=== PATIENT | female | born 1990 | race Caucasian/White ===

== ENCOUNTER 2017-05-09 16:41 | Inpatient (IN) | payer OTHER ==
[~2017-05-09] VITALS: Ht 121.9 cm; Wt 33.5 kg
[~2017-05-09 16:41] MED LIST: DIAZ2 PO; TIZA4CAP PO
[2017-05-09 16:47] VITALS: BP 176/108; PULSE 145; RESP 28; TEMP 99.2; O2SAT 99
[2017-05-09 17:15] VITALS: BP 121/91; PULSE 124; RESP 20; TEMP 102.1; O2SAT 99
[2017-05-09] MEDS ORDERED: LORazepam 2 MG/ML VIAL IV PUSH ONE (17:30)
[2017-05-09] MEDS ORDERED: ACETAMINOPHEN 650 MG SUPP RECTAL ONE (17:30)
[2017-05-09] MEDS ORDERED: SODIUM CHLOR 0.9% 1000 ML INJ 1,000 ML IV ONE (17:30)
[2017-05-09] MEDS ORDERED: DIAZ1SOL PEG (18:02)
[2017-05-09] MEDS ORDERED: TIZA4TAB PO (18:02)
[2017-05-09 18:07] LABS: AUTOMATED NEUTROPHIL # 27.7 TH/MM3 (1.8-7.7); BASOPHIL # 0.2 TH/MM3 (0-0.2); BASOPHIL % 0.5 % (0.0-2.0); EOSINOPHIL % 0.1 % (0.0-4.0); HEMATOCRIT 42.4 % (35.0-46.0); HEMO FLAGS AUTO DIFF; LYMPH % 2.5 % (9.0-44.0); LYMPHOCYTE # 0.7 TH/MM3 (1.0-4.8); MEAN CELL VOLUME 87.7 FL (80.0-100.0); MEAN CORPUSCULAR HEMOGLOBIN 29.9 PG (27.0-34.0); MEAN CORPUSCULAR HGB CONC 34.1 % (32.0-36.0); MONO % 3.7 % (0.0-8.0); NEUT % 93.2 % (16.0-70.0); PLATELET COUNT 409 TH/MM3 (150-450); RED BLOOD COUNT 4.83 MIL/MM3 (4.00-5.30); RED CELL DISTRIBUTION WIDTH 13.4 % (11.6-17.2); WHITE BLOOD COUNT 29.7 TH/MM3 (4.0-11.0)
[2017-05-09 18:15] LABS: ALT (GPT) 40 U/L (10-53); ANION GAP 14 MEQ/L (5-15); AST (GOT) 55 U/L (15-37); BICARBONATE 19.9 MEQ/L (21.0-32.0); BLOOD UREA NITROGEN 21 MG/DL (7-18); CHLORIDE 109 MEQ/L (98-107); GLOMERULAR FILTRATION RATE 110 ML/MIN (>89); POTASSIUM 4.9 MEQ/L (3.5-5.1); SODIUM (NA) 143 MEQ/L (136-145)
[2017-05-09 18:17] LABS: ALKALINE PHOSPHATASE 75 U/L (45-117); TOTAL BILIRUBIN ADULT 0.6 MG/DL (0.2-1.0)
--- NOTE | 2017-05-09 18:22 | PD ---
HPI Chief Complaint: Medical Clearance Time Seen by Provider: 17:25 Travel History International Travel<30 days: No Contact w/Intl Traveler<30days: No Traveled to known affect area: No History of Present Illness HPI So 27-year-old woman who presents to the emergency department brought in by her parents. She is a history of severe spastic CP. Patient's over the past couple weeks she's gotten progressively worse with marked increase in her spasticity. They seem multiple different specialists including her urologist, and her neurologist. They were unable to find a cause for the increase in her spasticity. She's had some low-grade fever. A little bit of congestion. Patient is a history of severe spastic several palsy, she has a G-tube, she also trouble with intermittent urinary retention in the past and she does get intermittently catheterized at home. History Past Medical History Narrative Medical Spastic cerebral palsy, multiple contractures Social History Alcohol Use: No Tobacco Use: No Allergies-Medications (Allergen,Severity, Reaction): Coded Allergies: lactose (Unverified Allergy, Severe, 05/09/17) Uncoded Allergies: TAPE (Allergy, Severe, SKIN REACTION, 04/11/08) Reported Meds & Prescriptions Reported Meds & Active Scripts Active Reported Tizanidine (Tizanidine HCl) 4 Mg Tab 4 Mg PEG HS Diazepam Liq (Diazepam) 1 Mg/Ml Liq 4 Ml PEG HS Review of Systems ROS Limitations: Clinical Condition Physical Exam Narrative GENERAL: 27-year-old woman, appears younger than stated age, marked contractures throughout the upper or lower extremities and back, with writhing contractures bed. SKIN: Skins hot and flushed. I don't see any obvious areas of breakdown. HEAD: Atraumatic. Normocephalic. EYES: Pupils equal and round. No scleral icterus. No injection or drainage. ENT: No nasal bleeding or discharge. Mucous membranes pink and moist. NECK: Trachea midline. No JVD. CARDIOVASCULAR: Regular rate and rhythm. No murmur appreciated. RESPIRATORY: No accessory muscle use. Clear to auscultation. Breath sounds equal bilaterally. GASTROINTESTINAL: Abdomen flat and firm. Contracted. G-tube present the upper abdomen. MUSCULOSKELETAL: Extensive spastic contracture deformities with decreased muscle bulk. NEUROLOGICAL: Minimal apparent purposeful response with marked contractures and writhing type contracture movement. Data Data Last Documented VS Vital Signs Date Time Temp Pulse Resp B/P (MAP) Pulse Ox O2 Delivery O2 Flow Rate FiO2 05/09/17 19:08 100.6 107 20 136/91 (106) 98 Room Air Orders Orders Complete Blood Count With Diff (05/09/17:25) Comprehensive Metabolic Panel (05/09/17:25) Lactic Acid Sepsis Protocol (05/09/17:25) Lipase (05/09/17:) Urinalysis - C+S If Indicated (05/09/17:25) Influenzae A/B Antigen (05/09/17:) Blood Culture (05/09/17:) Chest, Single Ap (05/09/17:) Blood Glucose (05/09/17:) Ecg Monitoring (05/09/17:) Iv Access Insert/Monitor (05/09/17:) Cath For Specimen (05/09/17:) Oximetry (05/09/17:) Oxygen Administration (05/09/17:25) Acetaminophen Supp (Tylenol Supp) (05/09/17 17:30) Pelvis, Ap Only (Routine) (05/09/17 ) Sodium Chlor 0.9% 1000 Ml Inj (Ns 1000 M (05/09/17 17:30) Lorazepam Inj (Ativan Inj) (05/09/17 17:30) Us Kidney/Renal/Bladder (05/09/17 ) Urine Culture (05/09/17 17:40) Admit To Inpatient (05/09/17 ) Vital Signs (Adult) Q4H (05/09/17 19:22) Activity Bed Rest (05/09/17 19:22) Machine Shop Supervisor / Telemetry .CONTINUOUS (05/09/17 19:22) Sodium Chloride 0.9% Flush (Ns Flush) (05/09/17 19:30) Sodium Chloride 0.9% Flush (Ns Flush) (05/09/17 21:00) Basic Metabolic Panel (Bmp) (05/10/17 06:00) Complete Blood Count With Diff (05/10/17 06:00) Pt Request For Service (05/09/17 19:22) Case Management Consult (05/09/17:22) Naloxone Inj (Narcan Inj) (05/09/17 19:30) Inpatient Certification (05/09/17 ) Ceftriaxone Inj (Rocephin Inj) (05/09/17 19:30) Resp Panel (Adult/Ped) (05/09/17 19:21) Labs Laboratory Tests Test 05/09/17 17:35 05/09/17 17:40 05/09/17 19:03 White Blood Count 29.7 TH/MM3 Red Blood Count 4.83 MIL/MM3 Hemoglobin 14.4 GM/DL Hematocrit 42.4 % Mean Corpuscular Volume 87.7 FL Mean Corpuscular Hemoglobin 29.9 PG Mean Corpuscular Hemoglobin Concent 34.1 % Red Cell Distribution Width 13.4 % Platelet Count 409 TH/MM3 Mean Platelet Volume 8.7 FL Neutrophils (%) (Auto) 93.2 % Lymphocytes (%) (Auto) 2.5 % Monocytes (%) (Auto) 3.7 % Eosinophils (%) (Auto) 0.1 % Basophils (%) (Auto) 0.5 % Neutrophils # (Auto) 27.7 TH/MM3 Lymphocytes # (Auto) 0.7 TH/MM3 Monocytes # (Auto) 1.1 TH/MM3 Eosinophils # (Auto) 0.0 TH/MM3 Basophils # (Auto) 0.2 TH/MM3 CBC Comment AUTO DIFF Differential Total Cells Counted 100 Neutrophils % (Manual) 89 % Band Neutrophils % 7 % Lymphocytes % 1 % Monocytes % 2 % Basophils % 1 % Neutrophils # (Manual) 28.5 TH/MM3 Differential Comment FINAL DIFF MANUAL Toxic Vacuolation PRESENT Platelet Estimate NORMAL Platelet Morphology Comment NORMAL Blood Urea Nitrogen 21 MG/DL Creatinine 0.65 MG/DL Random Glucose 89 MG/DL Total Protein 8.2 GM/DL Albumin 4.3 GM/DL Calcium Level 8.7 MG/DL Alkaline Phosphatase 75 U/L Aspartate Amino Transf (AST/SGOT) 55 U/L Alanine Aminotransferase (ALT/SGPT) 40 U/L Total Bilirubin 0.6 MG/DL Sodium Level 143 MEQ/L Potassium Level 4.9 MEQ/L Chloride Level 109 MEQ/L Carbon Dioxide Level 19.9 MEQ/L Anion Gap 14 MEQ/L Estimat Glomerular Filtration Rate 110 ML/MIN Lipase 106 U/L Urine Color YELLOW Urine Turbidity CLEAR Urine pH 5.5 Urine Specific [place] 1.026 Urine Protein TRACE mg/dL Urine Glucose (UA) NEG mg/dL Urine Ketones NEG mg/dL Urine Occult Blood TRACE Urine Nitrite NEG Urine Bilirubin NEG Urine Urobilinogen LESS THAN 2.0 MG/DL Urine Leukocyte Esterase TRACE Urine RBC 4 /hpf Urine WBC 4 /hpf Urine Squamous Epithelial Cells 3 /hpf Urine Bacteria RARE /hpf Microscopic Urinalysis Comment CATH-CULTURE IND MDM Medical Decision Making Medical Screen Exam Complete: Yes Emergency Medical Condition: Yes Interpretation(s) LABS: CBC remarkable for white count 29,000 Mildly elevated AST, BUN 21 Lipase 16 Lactate pending UA unremarkable Renal ultrasound: Unremarkable. My interpretation of chest x-ray: Lungs are clear. There is some gaseous distention in the bowels. Pelvis x-ray: Previous bony osteotomy in the left hip, I don't see any fractures or other abnormality in the right hip. Previous hardware in the right femur. Differential Diagnosis Infection, some sort of painful or noxious stimulus, hip dislocation, as a lecture light abnormality, medication reaction, other Narrative Course Medical decision making INITIAL: 27-year-old woman with marked spastic contractures worsening over the past several days. Patient appears very uncomfortable. She feels hot and flushed and I think she may have an infection as a cause for her worsening contractures. Etiology is unclear. She'll be given some benzodiazepines for sedation here as well as IV fluids. We'll check labs. We'll check a chest x- ray. She has an order for an outpatient ultrasound of her kidneys ureter and bladder which will perform. She also has had hip dislocations in the past from contractures leading to a procedure to remove the femoral head on one of her hips. We'll check a pelvis x-ray to check the other hip. FINAL:: 27 YEAR-OLD woman with SPASTIC CONTRACTURES, FEVER TACHYCARDIA AND ELEVATED WHITE COUNT SUGGESTIVE OF SEPSIS ETIOLOGY OF HER INCREASED SPASTICITY. SOURCE IS UNCLEAR. VERY DIFFICULT TO LOCALIZE. There is some gaseous distention of the bowel some x-ray, but no distention of the abdomen on exam. There is no specific grimace with palpation of the abdomen, but again difficult exam. This point recommend empiric antibiotic coverage, serial examinations, repeat labs, IV fluids. Diagnosis Primary Impression: Sepsis Additional Impressions: Fever Spasticity Admitting Information Admitting Physician Requests: Admit Vamshi Santos MD May 09, 2017 18:21
[2017-05-09 18:23] LABS: BACTERIA, URINE RARE /hpf; BLOOD, URINE TRACE (NEG); GLUCOSE,URINE NEG (NEG); KETONE, URINE NEG (NEG); NITRITE,URINE NEG (NEG); PH, URINE 5.5 (5.0-8.5); SQUAMOUS EPITHELIAL CELL URINE 3 /hpf (0-5); URINE COLOR YELLOW (YELLW/STRAW)
[2017-05-09 18:25] LABS: COMMENT (UR) CATH-CULTURE IND; CULTURE IF INDICATED CATH CULTURE IND
--- NOTE | 2017-05-09 18:37 | RADRPT ---
EXAM DATE/TIME: 05/09/2017 17:53 [facility] COMPARISON: No previous studies available for comparison. EXTERNAL COMPARISON : [facility], US KIDNEY-BILATERAL, March 29, 2013 INDICATIONS : Flank pain. MEDICAL HISTORY : Cerebral palsy. Contractures. Blood transfusions. SURGICAL HISTORY : Peg placement. Suprapubic catheter. Femur surgery. Back surgery. ENCOUNTER: Initial ACUITY: 1 day PAIN SCORE: 2/10 LOCATION: Bilateral flank MEASUREMENTS: RIGHT KIDNEY: 8.9 x 4.7 x 5.0 cm LEFT KIDNEY: 9.1 x 4.5 x 4.6 cm FINDINGS: RIGHT KIDNEY: Renal cortex is normal in thickness and echotexture. No hydronephrosis, stone, or mass. LEFT KIDNEY: Renal cortex is normal in thickness and echotexture. No hydronephrosis, stone, or mass. BLADDER: The urinary bladder is totally decompressed and not seen. CONCLUSION: 1. Normal kidneys. 2. Urinary bladder totally decompressed and not seen. Antoni Mathew Jr., MD on May 09, 2017 at 18:34 Board Certified Radiologist. This report was verified electronically.
[2017-05-09 18:52] LABS: BANDS 7 % (0-6); BASOPHILS 1 % (0-2); NEUTROPHIL # MANUAL DIFF 28.5 TH/MM3 (1.8-7.7); PLATELET ESTIMATE SMEAR NORMAL (NORMAL); PLATELET MORPHOLOGY NORMAL (NORMAL); POLYS (SEG NEUTROPHILS) 89 % (16-70); SCAN/DIFF FINAL DIFF MANUAL; TOXIC VACUOLATION PRESENT (NONE SEEN); WBC DIFF SAMPLE 100
[2017-05-09 19:08] VITALS: BP 136/91; PULSE 107; PULSE 126; RESP 20; TEMP 100.6; O2SAT 98
--- NOTE | 2017-05-09 19:14 | RADRPT ---
EXAM DATE/TIME: 05/09/2017 18:37 [facility] COMPARISON: No previous studies available for comparison. INDICATIONS : Fever. MEDICAL HISTORY : Cerebral palsy. SURGICAL HISTORY : Orif of femur. ENCOUNTER: Initial ACUITY: 1 day PAIN SCORE: Non-responsive. LOCATION: Bilateral chest FINDINGS: A single view of the chest demonstrates the lungs to be symmetrically aerated without evidence of mas s, infiltrate or effusion. There is elevation of the right hemidiaphragm. The cardiomediastinal cont ours are unremarkable. A scoliotic spine. Gastrostomy tube noted. Gas-filled loops of large bowel wit hin the upper abdomen. CONCLUSION: No acute disease. Antoni Mathew Jr., MD on May 09, 2017 at 19:11 Board Certified Radiologist. This report was verified electronically.
--- NOTE | 2017-05-09 19:19 | RADRPT ---
EXAM DATE/TIME: 05/09/2017 18:42 [facility] COMPARISON: No previous studies available for comparison. INDICATIONS : Pelvis pain. MEDICAL HISTORY : Cerebral palsy. SURGICAL HISTORY : Orif of femur. ENCOUNTER: Initial ACUITY: 1 day PAIN SCORE: Non-responsive. LOCATION: Pelvis. FINDINGS: A single frontal view of the pelvis was the best obtainable image given the patient's state of jorge ation. There is a windswept pelvis noted consistent with nonambulatory patient. Either chronic erosiv e changes or surgical absence of the left femoral head. There is superior migration of the right femo ral head without crystal dislocation. Shallow acetabula are noted. No acute fracture or dislocation. A right femoral orthopedic plate observed. Gas filled loops of large and small bowel observed. CONCLUSION: Chronic changes as detailed above. No acute abnormality. Antoni Mathew Jr., MD on May 09, 2017 at 19:16 Board Certified Radiologist. This report was verified electronically.
[2017-05-09] MEDS ORDERED: cefTRIAXone INJ 1,000 MG in SODIUM CHLORIDE 0.9% INJ 100 ML IV ONE (19:30)
[2017-05-09] MEDS ORDERED: SODIUM CHLORIDE 0.9% FLUSH 10 ML FLUSH IV FLUSH PRN (19:30)
[2017-05-09] MEDS ORDERED: NALOXONE HCL 0.4 MG/ML AMP IV PUSH PRN (19:30)
[2017-05-09 21:07] VITALS: BP 140/88; PULSE 138; RESP 20; TEMP 100; O2SAT 96
[2017-05-10] VITALS (7 sets, daily range): BP systolic 121–162; BP diastolic 71–100; PULSE 102–140; RESP 17–21; TEMP 97–99.8; O2SAT 95–97
[2017-05-10] MEDS: SODIUM CHLORIDE 0.9% FLUSH 10 ML FLUSH IV FLUSH SCH ×3 (00:05→20:17)
--- NOTE | 2017-05-10 00:45 | HHI.HP ---
HPI Service [facility] Primary Care Physician No Primary Care Physician Admission Diagnosis sepsis, fever, increased spasticity Diagnoses: Travel History International Travel<30 Days: No Contact w/Intl Traveler <30 Da: No Traveled to Known Affected Are: No History of Present Illness hx from patient's parents at the bedside, ER physician communication and review of medical records Patient's parents reported that patient was having episodes at home for the past few weeks where she would become supertight, and would have increased spasms. They also report of severe diaphoresis with these episodes. 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 However she is able to answer yes or no questions by stinks out her tongue. She reports a burning urination. She denies fevers/diarrhea/nausea/headaches/abdominal pains. Mom noticed the patient was getting more and more spastic and tighter than her normal and they would have to hold her all day long. Therefore they went to her neurologist in [place] who sent her to hospital. per mom, no nausea/ vomiting/ diarrhea/ blood in stool or urination no abdominal pain no confusion not on anitbiotics at home no daycare program no sick contact has therapist who comes in for PT, who also works at school system straight cath once or twice a month- by parents about 2.5 weeks ago, straight cath was done, was cloudy and sediments at that time went to ER then, and urine was negative - in [place] peg tube placed about 15yrs ago, changed at home by mom every 6 months had once some leakage into peritoneal area about 14yrs ago and needed to drain it- but since then nothing happened no bed sores Patient's parents are also worried about patient not having enough nutrition. Patient has been extremely thin. She does not like PEG tube feeding. She therefore usually just gets medications and water through her PEG tube but she would take her meals orally. She would have to have her meals chopped up by her mom and she would eat them. She also does not like the taste of Ensure and therefore was not getting any supplements. Parents report that the patient used to have baclofen pump previously but patient would literally get the pump out of her skin because of her movements and body being too thin. She also had infection with MSSA with baclofen pump. Review of Systems Except as stated in HPI: all other systems reviewed are Neg Past Family Social History Past Medical History cerebral palsy - caused by kernicterus never had aspiration pneumonia Past Surgical History peg tube placement right hip fx sx rizotomy left hip femur procedure for dislocation- castle procedure peg tube leakage to peritoneal- sx baclofen pump insertion- and removal - due to MSSA infection Allergies: Coded Allergies: lactose (Unverified Allergy, Severe, 05/09/17) Uncoded Allergies: TAPE (Allergy, Severe, SKIN REACTION, 04/11/08) Family History dm in mom borderline maternal grandfather - htn pt's older brother- DM type I Social History no smoking /etoh/ drugs cannot sit on chair unless with multiple straps to secure her Physical Exam Vital Signs Vital Signs Date Time Temp Pulse Resp B/P (MAP) Pulse Ox O2 Delivery O2 Flow Rate FiO2 05/09/17 21:11 05/09/17 21:07 100.0 138 20 140/88 (105) 96 05/09/17 19:08 100.6 107 20 136/91 (106) 98 Room Air 05/09/17 17:15 102.1 124 20 121/91 (101) 99 Room Air 05/09/17 17:15 99 Room Air 05/09/17 17:15 99 Room Air 05/09/17 16:47 99.2 145 28 176/108 (130) 99 Room Air Physical Exam GENERAL: This is a thin young lady, not in acute distress. Smiling. SKIN: No rashes, ecchymoses or lesions. Cool and dry. HEAD: Atraumatic. Normocephalic. No temporal or scalp tenderness. EYES: P. No scleral icterus. No injection or drainage. ENT: Nose without bleeding, purulent drainage or septal hematoma. . Airway patent. NECK: Trachea midline. No JVD CARDIOVASCULAR: Regular rate and rhythm without murmurs, gallops, or rubs. RESPIRATORY: Limited exam due to patient's body habitus. Decreased air entry. GASTROINTESTINAL: Abdomen soft, non-tender, nondistended. No guarding. MUSCULOSKELETAL: Extremities without clubbing, cyanosis, or edema. No calf tenderness. Muscle atrophic NEUROLOGICAL: Awake and alert. Bilateral upper and lower extremity contractures. Severe scoliosis. Nonverbal. However answers yes or no questions by sticking out her tongue. Laboratory Laboratory Tests Test 05/09/17 17:35 05/09/17 17:40 05/09/17 19:03 05/09/17 19:53 White Blood Count 29.7 Red Blood Count 4.83 Hemoglobin 14.4 Hematocrit 42.4 Mean Corpuscular Volume 87.7 Mean Corpuscular Hemoglobin 29.9 Mean Corpuscular Hemoglobin Concent 34.1 Red Cell Distribution Width 13.4 Platelet Count 409 Mean Platelet Volume 8.7 Neutrophils (%) (Auto) 93.2 Lymphocytes (%) (Auto) 2.5 Monocytes (%) (Auto) 3.7 Eosinophils (%) (Auto) 0.1 Basophils (%) (Auto) 0.5 Neutrophils # (Auto) 27.7 Lymphocytes # (Auto) 0.7 Monocytes # (Auto) 1.1 Eosinophils # (Auto) 0.0 Basophils # (Auto) 0.2 CBC Comment AUTO DIFF Differential Total Cells Counted 100 Neutrophils % (Manual) 89 Band Neutrophils % 7 Lymphocytes % 1 Monocytes % 2 Basophils % 1 Neutrophils # (Manual) 28.5 Differential Comment FINAL DIFF MANUAL Toxic Vacuolation PRESENT Platelet Estimate NORMAL Platelet Morphology Comment NORMAL Blood Urea Nitrogen 21 Creatinine 0.65 Random Glucose 89 Total Protein 8.2 Albumin 4.3 Calcium Level 8.7 Alkaline Phosphatase 75 Aspartate Amino Transf (AST/SGOT) 55 Alanine Aminotransferase (ALT/SGPT) 40 Total Bilirubin 0.6 Sodium Level 143 Potassium Level 4.9 Chloride Level 109 Carbon Dioxide Level 19.9 Anion Gap 14 Estimat Glomerular Filtration Rate 110 Lipase 106 Urine Color YELLOW Urine Turbidity CLEAR Urine pH 5.5 Urine Specific [place] 1.026 Urine Protein TRACE Urine Glucose (UA) NEG Urine Ketones NEG Urine Occult Blood TRACE Urine Nitrite NEG Urine Bilirubin NEG Urine Urobilinogen LESS THAN 2.0 Urine Leukocyte Esterase TRACE Urine RBC 4 Urine WBC 4 Urine Squamous Epithelial Cells 3 Urine Bacteria RARE Microscopic Urinalysis Comment CATH-CULTURE IND Lactic Acid Level 1.1 Date/Time Source Procedure Growth Status 05/09/17 17:35 Blood Peripheral Aerobic Blood Culture Pending Received 05/09/17 17:35 Blood Peripheral Anaerobic Blood Culture Pending Received 05/09/17 17:45 Nasal Washing Influenza Types A,B Antigen (VERONIKA) - Final NEGATIVE FOR FLU A AND B ANTIGEN.... Complete 05/09/17 17:40 Urine Catheterized Urine Urine Culture Pending Received Result Diagram: 05/09/17 1735 05/09/17 173 Imaging Last 48 hours Impressions Chest X-Ray 05/09/17 1725 Signed Impressions: Service Date/Time: Tuesday, May 09, 2017 18:37 - CONCLUSION: No acute disease. Antoni Mathew Jr., MD Renal Ultrasound 05/09/17 0000 Signed Impressions: Service Date/Time: Tuesday, May 09, 2017 17:53 - CONCLUSION: 1. Normal kidneys. 2. Urinary bladder totally decompressed and not seen. Antoni Mathew Jr., MD Pelvis X-Ray 05/09/17 0000 Signed Impressions: Service Date/Time: Tuesday, May 09, 2017 18:42 - CONCLUSION: Chronic changes as detailed above. No acute abnormality. MD Saritha Zheng Jr. VTE Risk Assessment Caprini VTE Risk Assessment: Mod/High Risk (score >= 2) Caprini Risk Assessment Model Point Value = 1 Point Value = 2 Point Value = 3 Point Value = 5 Age 41-60 Minor surgery BMI > 25 kg/m2 Swollen legs Varicose veins or History of unexplained or recurrent spontaneous Oral contraceptives or hormone replacement Sepsis (< 1 month) Serious lung disease, including pneumonia (< 1 month) Abnormal pulmonary function Acute myocardial infarction Congestive heart failure (< 1 month) History of inflammatory bowel disease Medical patient at bed rest Age 61-74 Arthroscopic surgery Major open surgery (> 45 min) Laparoscopic surgery (> 45 min) Malignancy Confined to bed (> 72 hours) Immobilizing plaster cast Central venous access Age >= 75 History of VTE Family history of VTE Factor V Leiden Prothrombin [id number] Lupus anticoagulant Anticardiolipin antibodies Elevated serum homocysteine Heparin-induced thrombocytopenia Other congenital or acquired thrombophilia Stroke (< 1 month) Elective arthroplasty Hip, pelvis, or leg fracture Acute spinal cord injury (< 1 month) Prophylaxis Regimen Total Risk Factor Score Risk Level Prophylaxis Regimen 0-1 Low Early ambulation 2 Moderate Order ONE of the following: *Sequential Compression Device (SCD) *Heparin 5000 units SQ BID 3-4 Higher Order ONE of the following medications: *Heparin 5000 units SQ TID *Enoxaparin/Lovenox 40 mg SQ daily (WT < 150 kg, CrCl > 30 mL/min) *Enoxaparin/Lovenox 30 mg SQ daily (WT < 150 kg, CrCl > 10-29 mL/min) *Enoxaparin/Lovenox 30 mg SQ BID (WT < 150 kg, CrCl > 30 mL/min) AND/OR *Sequential Compression Device (SCD) 5 or more Highest Order ONE of the following medications: *Heparin 5000 units SQ TID (Preferred with Epidurals) *Enoxaparin/Lovenox 40 mg SQ daily (WT < 150 kg, CrCl > 30 mL/min) *Enoxaparin/Lovenox 30 mg SQ daily (WT < 150 kg, CrCl > 10-29 mL/min) *Enoxaparin/Lovenox 30 mg SQ BID (WT < 150 kg, CrCl > 30 mL/min) AND *Sequential Compression Device (SCD) Assessment and Plan Assessment and Plan Impression: uti febrile illness sirs worsening spasticity cerebral palsy - caused by kernicterus as never had aspiration pneumonia Plan: received rocephin and azithromax in er start on levofloxacin in am monitor for fevers turn pt q2hrs softcare mattress no evidence of diarrhea to follow up with viral panel. Would consult rehabilitation medicine/physiatry in regards to recommendations regarding spasticity management. Resume home Zanaflex and Valium. May need adjustment of meds versus baclofen pump to control spasticity. DVT prophylaxis with Lovenox. Discussed Condition With Patient, her mother and father at the bedside. Physician Certification 2 Midnight Certification Type: Admission for Inpatient Services Order for Inpatient Services The services are ordered in accordance with Medicare regulations or non- Medicare payer requirements, as applicable. In the case of services not specified as inpatient-only, they are appropriately provided as inpatient services in accordance with the 2-midnight benchmark. Estimated LOS (days): 4 days is the estimated time the patient will need to remain in the hospital, assuming treatment plan goals are met and no additional complications. Post-Hospital Plan: Home Bandar Maya MD May 10, 2017 00:45
[2017-05-10] MEDS ORDERED: ACETAMINOPHEN 650 MG SUPP RECTAL PRN (01:00)
[2017-05-10] MEDS ORDERED: MINERAL OIL ENEMA 118 ML BTL RECTAL PRN (01:45)
[2017-05-10 07:45] LABS: AUTOMATED NEUTROPHIL # 11.6 TH/MM3 (1.8-7.7); BASOPHIL # 0.1 TH/MM3 (0-0.2); BASOPHIL % 0.5 % (0.0-2.0); EOSINOPHIL % 0.1 % (0.0-4.0); HEMATOCRIT 38.5 % (35.0-46.0); HEMO FLAGS DIFF FINAL; LYMPH % 8.8 % (9.0-44.0); LYMPHOCYTE # 1.2 TH/MM3 (1.0-4.8); MEAN CELL VOLUME 86.8 FL (80.0-100.0); MEAN CORPUSCULAR HEMOGLOBIN 29.7 PG (27.0-34.0); MEAN CORPUSCULAR HGB CONC 34.2 % (32.0-36.0); NEUT % 83.6 % (16.0-70.0); PLATELET COUNT 264 TH/MM3 (150-450); RED BLOOD COUNT 4.44 MIL/MM3 (4.00-5.30); RED CELL DISTRIBUTION WIDTH 13.4 % (11.6-17.2); WHITE BLOOD COUNT 13.8 TH/MM3 (4.0-11.0)
[2017-05-10 08:10] LABS: BICARBONATE 23.6 MEQ/L (21.0-32.0); POTASSIUM 4.2 MEQ/L (3.5-5.1)
[2017-05-10] MEDS: LEVOFLOXACIN 750 MG PREMIX INJ 150 ML IV SCH (09:26)
[2017-05-10] MEDS: ENOXAPARIN SODIUM 40 MG/0.4 ML SYRINGE SQ SCH (09:27)
[2017-05-10 12:13] LABS: BOR. HOLMESII NOT DETECTED (NOT DETECT); BOR. PARA/BRONCH NOT DETECTED (NOT DETECT); BOR. PERTUSSIS NOT DETECTED (NOT DETECT); INFLUENZA B NOT DETECTED (NOT DETECT); RESP SYNCYTIAL VIRUS A NOT DETECTED (NOT DETECT); RESP SYNCYTIAL VIRUS B NOT DETECTED (NOT DETECT)
--- NOTE | 2017-05-10 17:10 | HHI.PR ---
Subjective Remarks supertight, burnign urinatinon, pt denies fever/ diarrhea/ nausea/ headaches denies abodminal pain monday, started- mom noticed pt was tighter than normal, family would hold her a lot went to neurologist today- Dr Hairston in [place] hx of Cerebral palsy pt would cry with tightness per mom, no nausea/ vomiting/ diarrhea/ blood in stool or urination no abdominal pain no confusion not on anitbiotics at home no daycare program no sick contact has therapist who comes in for PT, who also works at school system straight cath once or twice a month- by parents about 2.5 weeks ago, straight cath was done, was cloudy and sediments at that time went to ER then, and urine was negative - in [place] peg tube placed about 15yrs ago, changed at home by mom every 6 months had once some leakage into peritoneal area about 14yrs ago and needed to drain it- but since then nothing happened no bed sores 11-8 LONG DISCUSSION WITH FAMILY HAS HAD INCREASED SPASTICITY FOR AT LEAST THE PAST FEW MONTHS WILL ASK DR RUCKER TO SEE REGARDING THE SPASTICITY DW RN AND FAMILY FLUIDS ADJUST MEDS PAIN CONTROL Objective Vitals Vital Signs Date Time Temp Pulse Resp B/P (MAP) Pulse Ox O2 Delivery O2 Flow Rate FiO2 05/10/17 12:13 103 05/10/17 12:00 97.9 140 21 121/71 (88) 97 05/10/17 08:00 98.2 102 20 136/100 (112) 97 05/10/17 04:00 99.8 115 20 124/80 (95) 95 05/10/17 00:00 97.6 114 20 131/72 (91) 95 05/09/17 21:11 05/09/17 21:07 100.0 138 20 140/88 (105) 96 05/09/17 19:08 100.6 107 20 136/91 (106) 98 Room Air 05/09/17 17:15 102.1 124 20 121/91 (101) 99 Room Air 05/09/17 17:15 99 Room Air 05/09/17 17:15 99 Room Air I/O 05/09/17 05/09/17 05/09/17 05/10/17 05/10/17 05/10/17 07:00 15:00 23:00 07:00 15:00 23:00 Intake Total 1100 ml 450 ml Balance 1100 ml 450 ml Intake IV Total 1100 ml 150 ml Tube Irrigant 180 ml Other 120 ml # Voids 6 2 Result Diagram: 05/10/17 0643 05/10/17642 Other Results Laboratory Tests Test 05/09/17 17:35 05/09/17 17:40 05/09/17 19:03 05/09/17 19:53 White Blood Count 29.7 TH/MM3 Red Blood Count 4.83 MIL/MM3 Hemoglobin 14.4 GM/DL Hematocrit 42.4 % Mean Corpuscular Volume 87.7 FL Mean Corpuscular Hemoglobin 29.9 PG Mean Corpuscular Hemoglobin Concent 34.1 % Red Cell Distribution Width 13.4 % Platelet Count 409 TH/MM3 Mean Platelet Volume 8.7 FL Neutrophils (%) (Auto) 93.2 % Lymphocytes (%) (Auto) 2.5 % Monocytes (%) (Auto) 3.7 % Eosinophils (%) (Auto) 0.1 % Basophils (%) (Auto) 0.5 % Neutrophils # (Auto) 27.7 TH/MM3 Lymphocytes # (Auto) 0.7 TH/MM3 Monocytes # (Auto) 1.1 TH/MM3 Eosinophils # (Auto) 0.0 TH/MM3 Basophils # (Auto) 0.2 TH/MM3 CBC Comment AUTO DIFF Differential Total Cells Counted 100 Neutrophils % (Manual) 89 % Band Neutrophils % 7 % Lymphocytes % 1 % Monocytes % 2 % Basophils % 1 % Neutrophils # (Manual) 28.5 TH/MM3 Differential Comment FINAL DIFF MANUAL Toxic Vacuolation PRESENT Platelet Estimate NORMAL Platelet Morphology Comment NORMAL Blood Urea Nitrogen 21 MG/DL Creatinine 0.65 MG/DL Random Glucose 89 MG/DL Total Protein 8.2 GM/DL Albumin 4.3 GM/DL Calcium Level 8.7 MG/DL Alkaline Phosphatase 75 U/L Aspartate Amino Transf (AST/SGOT) 55 U/L Alanine Aminotransferase (ALT/SGPT) 40 U/L Total Bilirubin 0.6 MG/DL Sodium Level 143 MEQ/L Potassium Level 4.9 MEQ/L Chloride Level 109 MEQ/L Carbon Dioxide Level 19.9 MEQ/L Anion Gap 14 MEQ/L Estimat Glomerular Filtration Rate 110 ML/MIN Lipase 106 U/L Urine Color YELLOW Urine Turbidity CLEAR Urine pH 5.5 Urine Specific [place] 1.026 Urine Protein TRACE mg/dL Urine Glucose (UA) NEG mg/dL Urine Ketones NEG mg/dL Urine Occult Blood TRACE Urine Nitrite NEG Urine Bilirubin NEG Urine Urobilinogen LESS THAN 2.0 MG/DL Urine Leukocyte Esterase TRACE Urine RBC 4 /hpf Urine WBC 4 /hpf Urine Squamous Epithelial Cells 3 /hpf Urine Bacteria RARE /hpf Microscopic Urinalysis Comment CATH-CULTURE IND Lactic Acid Level 1.1 mmol/L Adenovirus (PCR) NOT DETECTED Bordetella holmesii (PCR) NOT DETECTED Bordetella pertussis DNA (PCR) NOT DETECTED B. parapertussis/bronchi (PCR) NOT DETECTED Human Metapneumovirus (PCR) NOT DETECTED Influenza Type A (RT-PCR) NOT DETECTED Influenza Type A (H1) (PCR) NOT DETECTED Influenza Type A (H3) (PCR) NOT DETECTED Influenza Type B (RT-PCR) NOT DETECTED Parainfluenza Type 1 (PCR) NOT DETECTED Parainfluenza Type 2 (PCR) NOT DETECTED Parainfluenza Type 3 (PCR) NOT DETECTED Parainfluenza Type 4 (PCR) NOT DETECTED Resp Syncytial Virus Type A (PCR) NOT DETECTED Resp Syncytial Virus Type B (PCR) NOT DETECTED Rhinovirus (PCR) NOT DETECTED Test 05/10/17 06:43 White Blood Count 13.8 TH/MM3 Red Blood Count 4.44 MIL/MM3 Hemoglobin 13.2 GM/DL Hematocrit 38.5 % Mean Corpuscular Volume 86.8 FL Mean Corpuscular Hemoglobin 29.7 PG Mean Corpuscular Hemoglobin Concent 34.2 % Red Cell Distribution Width 13.4 % Platelet Count 264 TH/MM3 Mean Platelet Volume 8.8 FL Neutrophils (%) (Auto) 83.6 % Lymphocytes (%) (Auto) 8.8 % Monocytes (%) (Auto) 7.0 % Eosinophils (%) (Auto) 0.1 % Basophils (%) (Auto) 0.5 % Neutrophils # (Auto) 11.6 TH/MM3 Lymphocytes # (Auto) 1.2 TH/MM3 Monocytes # (Auto) 1.0 TH/MM3 Eosinophils # (Auto) 0.0 TH/MM3 Basophils # (Auto) 0.1 TH/MM3 CBC Comment DIFF FINAL Differential Comment Blood Urea Nitrogen 14 MG/DL Creatinine 0.39 MG/DL Random Glucose 69 MG/DL Calcium Level 8.8 MG/DL Sodium Level 142 MEQ/L Potassium Level 4.2 MEQ/L Chloride Level 107 MEQ/L Carbon Dioxide Level 23.6 MEQ/L Anion Gap 11 MEQ/L Estimat Glomerular Filtration Rate 199 ML/MIN Imaging Last Impressions Chest X-Ray 05/09/17 1725 Signed Impressions: Service Date/Time: Tuesday, May 09, 2017 18:37 - CONCLUSION: No acute disease. Antoni Mathew Jr., MD Renal Ultrasound 05/09/17 0000 Signed Impressions: Service Date/Time: Tuesday, May 09, 2017 17:53 - CONCLUSION: 1. Normal kidneys. 2. Urinary bladder totally decompressed and not seen. Antoni Mathew Jr., MD Pelvis X-Ray 05/09/17 0000 Signed Impressions: Service Date/Time: Tuesday, May 09, 2017 18:42 - CONCLUSION: Chronic changes as detailed above. No acute abnormality. Antoni Mathew Jr., MD Objective Remarks GENERAL: Flailing all extremities around in no fashion-nonverbal at this time SKIN: Warm and dry. HEAD: Atraumatic. Normocephalic. EYES: Pupils equal and round. No scleral icterus. No injection or drainage. ENT: No nasal bleeding or discharge. Mucous membranes pink and moist. NECK: Trachea midline. No JVD. Neck appears supple CARDIOVASCULAR: Regular rate and rhythm. S1 and S2 no S3 or S4 RESPIRATORY: No accessory muscle use. Clear to auscultation. Breath sounds equal bilaterally. GASTROINTESTINAL: Abdomen soft, non-tender, nondistended. Hepatic and splenic margins not palpable. PEG tube MUSCULOSKELETAL: Extremities without clubbing, cyanosis, or edema. No obvious deformities. Spasticity in upper extremity and lower extremities bilaterally NEUROLOGICAL: Awake and alert. No obvious cranial nerve deficits. Motor grossly within normal limits. 4 out of 5 muscle strength in the arms and legs. ABNormal speech./ ( PSYCHIATRIC: INAppropriate mood and affect; insight and judgment ABnormal. Very spastic in upper extremity and lower extremity Medications and IVs Current Medications Acetaminophen (Tylenol Supp) 650 mg ONCE ONCE RECTAL Last administered on 05/09 17:56; Start 05/09/17 at 17:30; Stop 05/09/17 at 17:31; Status DC Sodium Chloride 1,000 ml @ 2,000 mls/hr Q30M ONCE IV Last administered on 05/09 17:56; Start 05/09/17 at 17:30; Stop 05/09/17 at 17:59; Status DC Lorazepam (Ativan Inj) 1 mg ONCE ONCE IV PUSH Last administered on 05/09/17 17:56; Start 05/09/17 at 17:30; Stop 05/09/17 at 17:31; Status DC Sodium Chloride (NS Flush) 2 ml UNSCH PRN IV FLUSH FLUSH AFTER USING IV ACCESS ; Start 05/09/17 at 19:30 Sodium Chloride (NS Flush) 2 ml BID IV FLUSH Last administered on 05/10/17 09: 27; Start 05/09/17 at 21:00 Naloxone HCl (Narcan Inj) 0.4 mg UNSCH PRN IV PUSH SEE LABEL COMMENTS; Start 05/09/17 at 19:30 Ceftriaxone Sodium 1000 mg/ Sodium Chloride 100 ml @ 200 mls/hr ONCE ONCE IV Last administered on 05/09/17 20:05; Start 05/09/17 at 19:30; Stop 05/09/17 at 19:59; Status DC Acetaminophen (Tylenol Supp) 650 mg Q6H PRN RECTAL fever >101; Start 05/10/17 at 01:00 Tizanidine HCl (Zanaflex) 4 mg QID PO Last administered on 05/10/17 12:30; Start 05/10/17 at 09:00 Diazepam (Valium) 4 mg HS PEG ; Start 05/10/17 at 21:00 Levofloxacin/ Dextrose 150 ml @ 100 mls/hr Q24H IV Last administered on 09:26; Start 05/10/17 at 09:00 Enoxaparin Sodium (Lovenox Inj) 40 mg Q24H SQ Last administered on 05/10/17 09 :27; Start 05/10/17 at 09:00 Mineral Oil (Fleet Mineral Oil Enema) 118 ml DAILY PRN RECTAL constipation; Start 05/10/17 at 01:45 A/P Assessment and Plan Assessment and Plan uti febrile illness sirs worsening spasticity received rocephin and azithromax in er start on levofloxacin in am monitor for fevers turn pt q2hrs softcare mattress no evidence of diarrhea to follow up with viral panel. Would consult rehabilitation medicine/physiatry in regards to recommendations regarding spasticity management. Resume home Zanaflex and Valium. PAIN CONTROL FLUIDS ANTIBIOTICS MEEK RN AND FAMILY ANTISPASM MEDS FOR HER SPASTICITY May need a larger specialized Hospital Discharge Planning MAY NEED A LARGER HOSPITAL WITH SPECIALISTS IN [place] [facility] Rod Trammell DO May 10, 2017 17:10
[2017-05-10] MEDS: LORazepam 0.5 MG TAB PEG PRN (17:36)
[2017-05-10] MEDS: POTASSIUM CHLORIDE INJ 20 MEQ, SODIUM BICARBONATE 8.4% INJ 50 MEQ in DEXT 5%-NACL 0.45%... IV SCH (17:49)
[2017-05-10] MEDS: DIAZEPAM 2 MG TAB PEG SCH (20:26)
[2017-05-10] MEDS ORDERED: MAGNESIUM HYDROXIDE SUSP 30 ML CUP PEG ONE (23:30)
[2017-05-11] VITALS (8 sets, daily range): BP systolic 106–174; BP diastolic 62–111; PULSE 88–138; RESP 17–20; TEMP 94.2–98.7; O2SAT 95–99
[2017-05-11] MEDS ORDERED: DIATRIZOATE MEGLUM/DIATRIZOATE SOD 9 ML CUP PO SCH (00:30)
[2017-05-11] MEDS ORDERED: LORazepam 2 MG/ML VIAL IV PUSH ONE (00:30)
--- NOTE | 2017-05-11 00:54 | RADRPT ---
EXAM DATE/TIME: 05/11/2017 00:27 [facility] COMPARISON: No previous studies available for comparison. INDICATIONS : Constipation. MEDICAL HISTORY : Cerebral palsy. SURGICAL HISTORY : Orif of femur. ENCOUNTER: Initial ACUITY: 1 day PAIN SCORE: Non-responsive. LOCATION: Bilateral abdomen. FINDINGS: Supine view of the abdomen was performed. The abdominal bowel gas pattern is normal. No abnormal ma sses, calcifications, or organomegaly is seen. Severe dextroscoliosis is present. There is resorption of the left femoral head with coxa valga on the right CONCLUSION: 1. No evidence of obstruction. Iban Begum MD on May 11, 2017 at 0:52 Board Certified Radiologist. This report was verified electronically.
[2017-05-11] MEDS ORDERED: IOHEXOL 350 MG/ML 10 ML VIAL (for RAD DIAG) IVCONTRAST ONE (05:20)
--- NOTE | 2017-05-11 05:49 | RADRPT ---
EXAM DATE/TIME: 05/11/2017 05:09 [facility] COMPARISON: No previous studies available for comparison. INDICATIONS : Sepsis, fever. Rule out obstruction, appendicitis and/or cholecystitis. IV CONTRAST: 40 cc Omnipaque 350 (iohexol) IV ORAL CONTRAST: Prescribed oral contrast ingested. RADIATION DOSE: 4.49 CTDIvol (mGy) MEDICAL HISTORY : Cerebral palsy. SURGICAL HISTORY : Right hip surgery. Peg tube. ENCOUNTER: Initial ACUITY: 1 day PAIN SCALE: Non-responsive LOCATION: Bilateral abdomen TECHNIQUE: Volumetric scanning of the abdomen and pelvis was performed. Using automated exposure control and ad justment of the mA and/or kV according to patient size, radiation dose was kept as low as reasonably achievable to obtain optimal diagnostic quality images. DICOM format image data is available electro nically for review and comparison. FINDINGS: Examination of the lung bases demonstrates no abnormality. No pleural fluid is identified. No pulmona ry nodules are present. The liver and spleen are free of focal defects. The gallbladder and pancreas demonstrate no abnormality. The adrenal glands are normal. The kidneys demonstrate no evidence of syl id renal mass or hydronephrosis. No free fluid or abdominal masses are identified. No para-aortic judy nopathy is seen. Gastrostomy tube is present. Examination of the pelvis demonstrates no evidence of free fluid or pelvic mass. No abnormally enlarg ed inguinal or retroperitoneal lymph nodes are present. The bladder is unremarkable. There is a large amount of fecal material throughout the colon consistent with constipation. Severe scoliosis is pres ent CONCLUSION: 1. No evidence of acute abdominal or pelvic process. No masses are identified. 2. Constipation Iban Begum MD on May 11, 2017 at 5:43 Board Certified Radiologist. This report was verified electronically.
--- NOTE | 2017-05-11 05:54 | RADRPT ---
EXAM DATE/TIME: 05/11/2017 05:09 [facility] COMPARISON: No previous studies available for comparison. INDICATIONS : Sepsis, fever. Rule out infection, dislocation and fracture. RADIATION DOSE: ; Reconstructed from previous dataset, no dose MEDICAL HISTORY : Cerebral palsy. SURGICAL HISTORY : Right hip surgery. Peg tube. ENCOUNTER: Initial ACUITY: 1 day PAIN SCALE: Non-responsive LOCATION: Bilateral lumbar TECHNIQUE: Volumetric scanning of the lumbar spine was performed. Multiplanar reconstructions in the sagittal, coronal and oblique axial planes were performed. Using automated exposure control and adjustment of the mA and/or kV according to patient size, radiation dose was kept as low as reasonably achievable t o obtain optimal diagnostic quality images. DICOM format image data is available electronically for review and comparison. FINDINGS: Sagittal images demostrate normal vertebral body alignment and curvature on lateral view. There is se hunter dextroscoliosis. No fractures are identified. Axial images performed from T12-L1 through L5-S1. T12-L1: No significant abnormalities identified. L1-L2: No significant abnormalities identified. L2-L3: No significant abnormalities identified. L3-L4: There is no evidence of disc protrusion or spinal canal stenosis. There is mild facet arthritis bilat erally. L4-L5: There is mild diffuse annular bulge of the disc. The neural foramina are clear bilaterally. There is no significant spinal canal stenosis. L5-S1: No significant abnormalities identified. CONCLUSION: 1. Severe scoliosis. No evidence of disc protrusion or spinal canal stenosis. Iban Begum MD on May 11, 2017 at 5:47 Board Certified Radiologist. This report was verified electronically.
--- NOTE | 2017-05-11 05:56 | RADRPT ---
EXAM DATE/TIME: 05/11/2017 05:14 [facility] COMPARISON: No previous studies available for comparison. INDICATIONS : Sepsis, fever. Rule out infection, dislocation and fracture. RADIATION DOSE: 27.74 CTDIvol (mGy) ; Combined studies MEDICAL HISTORY : Cerebral palsy. SURGICAL HISTORY : Right hip surgery. ENCOUNTER: Initial ACUITY: 1 day PAIN SCALE: Non-responsive LOCATION: Bilateral neck TECHNIQUE: Volumetric scanning of the cervical spine was performed. Multiplanar reconstructions in the sagittal, coronal and oblique axial planes were performed. Using automated exposure control and adjustment o f the mA and/or kV according to patient size, radiation dose was kept as low as reasonably achievable to obtain optimal diagnostic quality images. DICOM format image data is available electronically f or review and comparison. FINDINGS: VERTEBRAE: Normal vertebral body height. ALIGNMENT: No evidence of subluxation. C2-C3: The bony spinal canal is normal in size. No evidence of disc bulge or herniation. The neural forami na are bilaterally patent. C3-C4: The bony spinal canal is normal in size. No evidence of disc bulge or herniation. The neural forami na are bilaterally patent. C4-C5: The bony spinal canal is normal in size. No evidence of disc bulge or herniation. The neural forami na are bilaterally patent. C5-C6: The bony spinal canal is normal in size. No evidence of disc bulge or herniation. The neural forami na are bilaterally patent. C6-C7: The bony spinal canal is normal in size. No evidence of disc bulge or herniation. The neural forami na are bilaterally patent. C7-T1: The bony spinal canal is normal in size. No evidence of disc bulge or herniation. The neural forami na are bilaterally patent. CONCLUSION: 1. Negative examination of the cervical spine Iban Begum MD on May 11, 2017 at 5:52 Board Certified Radiologist. This report was verified electronically.
--- NOTE | 2017-05-11 06:25 | RADRPT ---
EXAM DATE/TIME: 05/11/2017 05:14 [facility] COMPARISON: No previous studies available for comparison. INDICATIONS : Sepsis, fever. Rule out infection, dislocation and fracture. RADIATION DOSE: 27.74 CTDIvol (mGy) ; Combined studies MEDICAL HISTORY : Cerebral palsy. SURGICAL HISTORY : Right hip surgery. Peg tube. ENCOUNTER: Initial ACUITY: 1 day PAIN SCALE: Non-responsive LOCATION: Bilateral thoracic TECHNIQUE: Volumetric scanning of the thoracic spine was performed. Multiplanar reconstructions in the sagittal, coronal and oblique axial planes were performed. Using automated exposure control a nd adjustment of the mA and/or kV according to patient size, radiation dose was kept as low as reason ably achievable to obtain optimal diagnostic quality images. DICOM format image data is available e lectronically for review and comparison. FINDINGS: Sagittal images demonstrate normal vertebral body alignment and curvature in the lateral plane with m oderate levoscoliosis in the upper thoracic spine. There is no bony destruction or periosteal reactio n to suggest osteomyelitis.. No fractures identified. Axial images performed from T1-T2 through T12-L 1. T1-T2: No significant abnormalities identified. T2-T3: No significant abnormalities identified. T3-T4: No significant abnormalities identified. T4-T5: No significant abnormalities identified. T5-T6: No significant abnormalities identified. T6-T7: No significant abnormalities identified. T7-T8: No significant abnormalities identified. T8-T9: No significant abnormalities identified. T9-T10: No significant abnormalities identified. T10-T11: No significant abnormalities identified. T11-T12: No significant abnormalities identified. T12-L1: No significant abnormalities identified. CONCLUSION: Scoliosis. No evidence of disc protrusion or spinal canal stenosis. Iban Begum MD on May 11, 2017 at 6:19 Board Certified Radiologist. This report was verified electronically.
[2017-05-11] MEDS: SODIUM CHLORIDE 0.9% FLUSH 10 ML FLUSH IV FLUSH SCH ×2 (09:00→20:13)
[2017-05-11] MEDS: LEVOFLOXACIN 750 MG PREMIX INJ 150 ML IV SCH (09:29)
[2017-05-11] MEDS: ENOXAPARIN SODIUM 40 MG/0.4 ML SYRINGE SQ SCH (09:29)
--- NOTE | 2017-05-11 11:32 | HHI.PR ---
Subjective Remarks supertight, burnign urinatinon, pt denies fever/ diarrhea/ nausea/ headaches denies abodminal pain monday, started- mom noticed pt was tighter than normal, family would hold her a lot went to neurologist today- Dr Hairston in [place] hx of Cerebral palsy pt would cry with tightness per mom, no nausea/ vomiting/ diarrhea/ blood in stool or urination no abdominal pain no confusion not on anitbiotics at home no daycare program no sick contact has therapist who comes in for PT, who also works at school system straight cath once or twice a month- by parents about 2.5 weeks ago, straight cath was done, was cloudy and sediments at that time went to ER then, and urine was negative - in [place] peg tube placed about 15yrs ago, changed at home by mom every 6 months had once some leakage into peritoneal area about 14yrs ago and needed to drain it- but since then nothing happened no bed sores 11-8 LONG DISCUSSION WITH FAMILY HAS HAD INCREASED SPASTICITY FOR AT LEAST THE PAST FEW MONTHS WILL ASK DR RUCKER TO SEE REGARDING THE SPASTICITY DW RN AND FAMILY FLUIDS ADJUST MEDS PAIN CONTROL 11-9 patient had CAT scans of the cervical thoracic and lumbar regions as well as the abdomen and pelvis Only showed scoliosis and constipation Have discussed with family in the room since the patient is nonverbal Have started her on low-dose Ativan 0.5 mg every 6 hours with some improvement Await rehabilitation medicine input Continue physical therapy and occupational therapy Continue antibiotics for urinary tract infection Continues to slowly improve Multiple questions answered for mother Objective Vitals Vital Signs Date Time Temp Pulse Resp B/P (MAP) Pulse Ox O2 Delivery O2 Flow Rate FiO2 05/11/17 08:00 98.7 104 19 144/94 (111) 95 05/11/17 06:00 94.2 128 17 174/89 (117) 99 05/11/17 00:00 98.7 132 18 106/62 (77) 96 05/10/17 20:00 98.1 107 17 162/95 (117) 95 05/10/17 16:00 97.0 127 20 123/91 (102) 97 05/10/17 12:13 103 05/10/17 12:00 97.9 140 21 121/71 (88) 97 I/O 05/10/17 05/10/17 05/10/17 05/11/17/9/17 11/9/17 07:00 15:00 23:00 07:00 15:00 23:00 Intake Total 450 ml 0 ml 798 ml 120 ml Balance 450 ml 0 ml 798 ml 120 ml Intake Oral 0 ml 0 ml 120 ml IV Total 150 ml 798 ml Tube Irrigant 180 ml Other 120 ml Bladder Scan Volume Amount 72 ml # Voids 6 2 1 1 # Bowel Movements 0 Result Diagram: 05/10/17 0643 05/10/17 0643 Other Results Laboratory Tests Test 05/09/17 17:35 05/09/17 17:40 05/09/17 19:03 05/09/17 19:53 White Blood Count 29.7 TH/MM3 Red Blood Count 4.83 MIL/MM3 Hemoglobin 14.4 GM/DL Hematocrit 42.4 % Mean Corpuscular Volume 87.7 FL Mean Corpuscular Hemoglobin 29.9 PG Mean Corpuscular Hemoglobin Concent 34.1 % Red Cell Distribution Width 13.4 % Platelet Count 409 TH/MM3 Mean Platelet Volume 8.7 FL Neutrophils (%) (Auto) 93.2 % Lymphocytes (%) (Auto) 2.5 % Monocytes (%) (Auto) 3.7 % Eosinophils (%) (Auto) 0.1 % Basophils (%) (Auto) 0.5 % Neutrophils # (Auto) 27.7 TH/MM3 Lymphocytes # (Auto) 0.7 TH/MM3 Monocytes # (Auto) 1.1 TH/MM3 Eosinophils # (Auto) 0.0 TH/MM3 Basophils # (Auto) 0.2 TH/MM3 CBC Comment AUTO DIFF Differential Total Cells Counted 100 Neutrophils % (Manual) 89 % Band Neutrophils % 7 % Lymphocytes % 1 % Monocytes % 2 % Basophils % 1 % Neutrophils # (Manual) 28.5 TH/MM3 Differential Comment FINAL DIFF MANUAL Toxic Vacuolation PRESENT Platelet Estimate NORMAL Platelet Morphology Comment NORMAL Blood Urea Nitrogen 21 MG/DL Creatinine 0.65 MG/DL Random Glucose 89 MG/DL Total Protein 8.2 GM/DL Albumin 4.3 GM/DL Calcium Level 8.7 MG/DL Alkaline Phosphatase 75 U/L Aspartate Amino Transf (AST/SGOT) 55 U/L Alanine Aminotransferase (ALT/SGPT) 40 U/L Total Bilirubin 0.6 MG/DL Sodium Level 143 MEQ/L Potassium Level 4.9 MEQ/L Chloride Level 109 MEQ/L Carbon Dioxide Level 19.9 MEQ/L Anion Gap 14 MEQ/L Estimat Glomerular Filtration Rate 110 ML/MIN Lipase 106 U/L Urine Color YELLOW Urine Turbidity CLEAR Urine pH 5.5 Urine Specific [place] 1.026 Urine Protein TRACE mg/dL Urine Glucose (UA) NEG mg/dL Urine Ketones NEG mg/dL Urine Occult Blood TRACE Urine Nitrite NEG Urine Bilirubin NEG Urine Urobilinogen LESS THAN 2.0 MG/DL Urine Leukocyte Esterase TRACE Urine RBC 4 /hpf Urine WBC 4 /hpf Urine Squamous Epithelial Cells 3 /hpf Urine Bacteria RARE /hpf Microscopic Urinalysis Comment CATH-CULTURE IND Lactic Acid Level 1.1 mmol/L Adenovirus (PCR) NOT DETECTED Bordetella holmesii (PCR) NOT DETECTED Bordetella pertussis DNA (PCR) NOT DETECTED B. parapertussis/bronchi (PCR) NOT DETECTED Human Metapneumovirus (PCR) NOT DETECTED Influenza Type A (RT-PCR) NOT DETECTED Influenza Type A (H1) (PCR) NOT DETECTED Influenza Type A (H3) (PCR) NOT DETECTED Influenza Type B (RT-PCR) NOT DETECTED Parainfluenza Type 1 (PCR) NOT DETECTED Parainfluenza Type 2 (PCR) NOT DETECTED Parainfluenza Type 3 (PCR) NOT DETECTED Parainfluenza Type 4 (PCR) NOT DETECTED Resp Syncytial Virus Type A (PCR) NOT DETECTED Resp Syncytial Virus Type B (PCR) NOT DETECTED Rhinovirus (PCR) NOT DETECTED Test 05/10/17 06:43 White Blood Count 13.8 TH/MM3 Red Blood Count 4.44 MIL/MM3 Hemoglobin 13.2 GM/DL Hematocrit 38.5 % Mean Corpuscular Volume 86.8 FL Mean Corpuscular Hemoglobin 29.7 PG Mean Corpuscular Hemoglobin Concent 34.2 % Red Cell Distribution Width 13.4 % Platelet Count 264 TH/MM3 Mean Platelet Volume 8.8 FL Neutrophils (%) (Auto) 83.6 % Lymphocytes (%) (Auto) 8.8 % Monocytes (%) (Auto) 7.0 % Eosinophils (%) (Auto) 0.1 % Basophils (%) (Auto) 0.5 % Neutrophils # (Auto) 11.6 TH/MM3 Lymphocytes # (Auto) 1.2 TH/MM3 Monocytes # (Auto) 1.0 TH/MM3 Eosinophils # (Auto) 0.0 TH/MM3 Basophils # (Auto) 0.1 TH/MM3 CBC Comment DIFF FINAL Differential Comment Blood Urea Nitrogen 14 MG/DL Creatinine 0.39 MG/DL Random Glucose 69 MG/DL Calcium Level 8.8 MG/DL Sodium Level 142 MEQ/L Potassium Level 4.2 MEQ/L Chloride Level 107 MEQ/L Carbon Dioxide Level 23.6 MEQ/L Anion Gap 11 MEQ/L Estimat Glomerular Filtration Rate 199 ML/MIN Imaging Last Impressions Thoracic Spine CT 05/11/17 0000 Signed Impressions: Service Date/Time: May 05:14 - CONCLUSION: Scoliosis. No evidence of disc protrusion or spinal canal stenosis. Iban Begum MD Lumbar Spine CT 05/11/17 Signed Impressions: Service Date/Time: May 05:09 - CONCLUSION: 1. Severe scoliosis. No evidence of disc protrusion or spinal canal stenosis. Iban Begum MD Cervical Spine CT 05/11/17 Signed Impressions: Service Date/Time: May 05:14 - CONCLUSION: 1. Negative examination of the cervical spine Iban Begum MD Abdomen/Pelvis CT 05/11/17 Signed Impressions: Service Date/Time: May 05:09 - CONCLUSION: 1. No evidence of acute abdominal or pelvic process. No masses are identified. 2. Constipation Iban Begum MD Abdomen X-Ray 05/11/17 Signed Impressions: Service Date/Time: May 00:27 - CONCLUSION: 1. No evidence of obstruction. Iban Begum MD Chest X-Ray 05/09/175 Signed Impressions: Service Date/Time: Tuesday, May 09, 2017 18:37 - CONCLUSION: No acute disease. Antoni Mathew Jr., MD Renal Ultrasound 05/09/17 Signed Impressions: Service Date/Time: Tuesday, May 09, 2017 17:53 - CONCLUSION: 1. Normal kidneys. 2. Urinary bladder totally decompressed and not seen. Antoni Mathew Jr., MD Pelvis X-Ray 05/09/17 0000 Signed Impressions: Service Date/Time: Tuesday, May 09, 2017 18:42 - CONCLUSION: Chronic changes as detailed above. No acute abnormality. Antoni Mathew Jr., MD Objective Remarks GENERAL: Flailing all extremities around in no fashion-nonverbal at this time SKIN: Warm and dry. HEAD: Atraumatic. Normocephalic. EYES: Pupils equal and round. No scleral icterus. No injection or drainage. ENT: No nasal bleeding or discharge. Mucous membranes pink and moist. NECK: Trachea midline. No JVD. Neck appears supple CARDIOVASCULAR: Regular rate and rhythm. S1 and S2 no S3 or S4 RESPIRATORY: No accessory muscle use. Clear to auscultation. Breath sounds equal bilaterally. GASTROINTESTINAL: Abdomen soft, non-tender, nondistended. Hepatic and splenic margins not palpable. PEG tube MUSCULOSKELETAL: Extremities without clubbing, cyanosis, or edema. No obvious deformities. Spasticity in upper extremity and lower extremities bilaterally chronic suprapubic catheter NEUROLOGICAL: Awake and alert. No obvious cranial nerve deficits. Motor grossly within normal limits. 4 out of 5 muscle strength in the arms and legs. ABNormal speech. PSYCHIATRIC: INAppropriate mood and affect; insight and judgment ABnormal. Very spastic in upper extremity and lower extremity Medications and IVs Current Medications Acetaminophen (Tylenol Supp) 650 mg ONCE ONCE RECTAL Last administered on 05/09 17:56; Start 05/09/17 at 17:30; Stop 05/09/17 at 17:31; Status DC Sodium Chloride 1,000 ml @ 2,000 mls/hr Q30M ONCE IV Last administered on 05/09 17:56; Start 05/09/17 at 17:30; Stop 05/09/17 at 17:59; Status DC Lorazepam (Ativan Inj) 1 mg ONCE ONCE IV PUSH Last administered on 05/09/17 17:56; Start 05/09/17 at 17:30; Stop 05/09/17 at 17:31; Status DC Sodium Chloride (NS Flush) 2 ml UNSCH PRN IV FLUSH FLUSH AFTER USING IV ACCESS ; Start 05/09/17 at 19:30 Sodium Chloride (NS Flush) 2 ml BID IV FLUSH Last administered on 05/10/17 09: 27; Start 05/09/17 at 21:00 Naloxone HCl (Narcan Inj) 0.4 mg UNSCH PRN IV PUSH SEE LABEL COMMENTS; Start 05/09/17 at 19:30 Ceftriaxone Sodium 1000 mg/ Sodium Chloride 100 ml @ 200 mls/hr ONCE ONCE IV Last administered on 05/09/17 20:05; Start 05/09/17 at 19:30; Stop 05/09/17 at 19:59; Status DC Acetaminophen (Tylenol Supp) 650 mg Q6H PRN RECTAL fever >101; Start 05/10/17 at 01:00 Tizanidine HCl (Zanaflex) 4 mg QID PO Last administered on 05/10/17 12:30; Start 05/10/17 at 09:00; Stop 05/10/17 at 17:05; Status DC Diazepam (Valium) 4 mg HS PEG Last administered on 05/10/17 20:26; Start 05/10 at 21:00 Levofloxacin/ Dextrose 150 ml @ 100 mls/hr Q24H IV Last administered on 09:29; Start 05/10/17 at 09:00 Enoxaparin Sodium (Lovenox Inj) 40 mg Q24H SQ Last administered on 05/11/17 09 :29; Start 05/10/17 at 09:00 Mineral Oil (Fleet Mineral Oil Enema) 118 ml DAILY PRN RECTAL constipation Last administered on 05/10/17 20:32; Start 05/10/17 at 01:45 Tizanidine HCl (Zanaflex) 4 mg QID PEG Last administered on 05/11/17 09:29; Start 05/10/17 at 18:00 Lorazepam (Ativan) 0.5 mg Q6H PRN PEG SPASTICITY Last administered on 17:36; Start 05/10/17 at 17:15 Potassium Chloride 20 meq/ Sodium Bicarbonate 50 meq/Dextrose/ Sodium Chloride 1 ,060 ml @ 75 mls/hr CONTINUOUS IV Last administered on 05/10/17 17:49; Start 05/10/17 at 18:00 Magnesium Hydroxide (Milk Of Magnesia Liq) 30 ml ONCE ONCE PEG Last administered on 05/10/17 23:55; Start 05/10/17 at 23:30; Stop 05/10/17 at 23:31 ; Status DC Lorazepam (Ativan Inj) 1 mg ONCE ONCE IV PUSH Last administered on 05/11/17 00:36; Start 05/11/17 at 00:30; Stop 05/11/17 at 00:31; Status DC Diatrizoate Meglum/ Diatrizoate Sod ( Gastroview Liq) 18 ml UNSCH X1 PO Last administered on 05/11/17 02:34; Start 05/11/17 at 00:30; Stop 05/11/17 at 01:06; Status DC Iohexol (Omnipaque 350 Inj) 40 ml STK-MED ONCE IVCONTRAST Last administered on 05/11/17 05:20; Start 05/11/17 at 05:20; Stop 05/11/17 at 05:21; Status DC A/P Assessment and Plan Assessment and Plan uti febrile illness sirs worsening spasticity received rocephin and azithromax in er start on levofloxacin in am monitor for fevers turn pt q2hrs softcare mattress no evidence of diarrhea to follow up with viral panel. Would consult rehabilitation medicine/physiatry in regards to recommendations regarding spasticity management. Resume home Zanaflex and Valium. 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
[2017-05-11] MEDS: LORazepam 0.5 MG TAB PEG PRN ×2 (12:00→14:31)
[2017-05-11] MEDS: POLYETHYLENE GLYCOL 17 GM PKG PEG SCH (12:00)
[2017-05-11 15:18] LABS: AUTOMATED NEUTROPHIL # 6.5 TH/MM3 (1.8-7.7); BASOPHIL % 0.5 % (0.0-2.0); EOSINOPHIL % 0.2 % (0.0-4.0); HEMO FLAGS DIFF FINAL; LYMPH % 16.8 % (9.0-44.0); LYMPHOCYTE # 1.5 TH/MM3 (1.0-4.8); MEAN CELL VOLUME 87.2 FL (80.0-100.0); MEAN CORPUSCULAR HEMOGLOBIN 29.6 PG (27.0-34.0); MEAN CORPUSCULAR HGB CONC 33.9 % (32.0-36.0); MONO % 10.7 % (0.0-8.0); NEUT % 71.8 % (16.0-70.0); PLATELET COUNT 296 TH/MM3 (150-450); RED BLOOD COUNT 4.36 MIL/MM3 (4.00-5.30); RED CELL DISTRIBUTION WIDTH 13.4 % (11.6-17.2); WHITE BLOOD COUNT 9.1 TH/MM3 (4.0-11.0)
[2017-05-11 15:44] LABS: ALKALINE PHOSPHATASE 60 U/L (45-117); ALT (GPT) 61 U/L (10-53); ANION GAP 8 MEQ/L (5-15); AST (GOT) 127 U/L (15-37); BICARBONATE 27.1 MEQ/L (21.0-32.0); BLOOD UREA NITROGEN 15 MG/DL (7-18); CHLORIDE 104 MEQ/L (98-107); FREE T4 1.51 NG/DL (0.76-1.46); GLOMERULAR FILTRATION RATE 119 ML/MIN (>89); MAGNESIUM 2.3 MG/DL (1.5-2.5); POTASSIUM 4.3 MEQ/L (3.5-5.1); SODIUM (NA) 139 MEQ/L (136-145); TOTAL BILIRUBIN ADULT 0.6 MG/DL (0.2-1.0)
[2017-05-11 16:43] LABS: HEMOGLOBIN A1a 0.6 %; HEMOGLOBIN A1b 1.4 %; HEMOGLOBIN Ao 88.1 %; HEMOGLOBIN LA1C 1.8 %; HEMOGLOBIN P3 3.1 %
[2017-05-11] MEDS: ACETAMINOPHEN 325MG/HYDROcodone 7.5MG/15ML UDC PO PRN (20:12)
[2017-05-11] MEDS: POTASSIUM CHLORIDE INJ 20 MEQ, SODIUM BICARBONATE 8.4% INJ 50 MEQ in DEXT 5%-NACL 0.45%... IV SCH (20:13)
[2017-05-11] MEDS: DIAZEPAM 2 MG TAB PEG SCH (20:19)
[2017-05-12] VITALS: BP 95/53; PULSE 67; RESP 17; TEMP 93.2; O2SAT 99
[2017-05-12] MEDS: ACETAMINOPHEN 325MG/HYDROcodone 7.5MG/15ML UDC PO PRN (03:45)
[2017-05-12 04:00] VITALS: BP 120/89; PULSE 100; RESP 18; TEMP 97.3; O2SAT 98
[2017-05-12] MEDS: LORazepam 1 MG TAB PEG PRN ×3 (04:54→18:02)
[2017-05-12 07:04] LABS: AUTOMATED NEUTROPHIL # 4.1 TH/MM3 (1.8-7.7); BASOPHIL % 0.5 % (0.0-2.0); EOSINOPHIL % 0.7 % (0.0-4.0); HEMATOCRIT 38.6 % (35.0-46.0); HEMO FLAGS DIFF FINAL; LYMPH % 23.4 % (9.0-44.0); LYMPHOCYTE # 1.5 TH/MM3 (1.0-4.8); MEAN CELL VOLUME 86.1 FL (80.0-100.0); MEAN CORPUSCULAR HEMOGLOBIN 29.6 PG (27.0-34.0); MEAN CORPUSCULAR HGB CONC 34.4 % (32.0-36.0); MONO % 12.3 % (0.0-8.0); NEUT % 63.1 % (16.0-70.0); PLATELET COUNT 315 TH/MM3 (150-450); RED BLOOD COUNT 4.49 MIL/MM3 (4.00-5.30); RED CELL DISTRIBUTION WIDTH 13.1 % (11.6-17.2); WHITE BLOOD COUNT 6.6 TH/MM3 (4.0-11.0)
[2017-05-12 07:39] LABS: ANION GAP 10 MEQ/L (5-15); AST (GOT) 134 U/L (15-37); BICARBONATE 26.4 MEQ/L (21.0-32.0); BLOOD UREA NITROGEN 11 MG/DL (7-18); CHLORIDE 106 MEQ/L (98-107); GLOMERULAR FILTRATION RATE 156 ML/MIN (>89); MAGNESIUM 2.2 MG/DL (1.5-2.5); POTASSIUM 3.7 MEQ/L (3.5-5.1); SODIUM (NA) 142 MEQ/L (136-145)
[2017-05-12 07:44] LABS: ALKALINE PHOSPHATASE 62 U/L (45-117); ALT (GPT) 67 U/L (10-53); TOTAL BILIRUBIN ADULT 0.7 MG/DL (0.2-1.0)
[2017-05-12 08:00] VITALS: BP 119/73; PULSE 70; RESP 20; TEMP 96.9; O2SAT 99
[2017-05-12] MEDS: SODIUM CHLORIDE 0.9% FLUSH 10 ML FLUSH IV FLUSH SCH ×2 (09:00→21:02)
[2017-05-12] MEDS: LEVOFLOXACIN 750 MG PREMIX INJ 150 ML IV SCH (09:03)
[2017-05-12] MEDS: ENOXAPARIN SODIUM 40 MG/0.4 ML SYRINGE SQ SCH (09:03)
[2017-05-12] MEDS: POLYETHYLENE GLYCOL 17 GM PKG PEG SCH (09:10)
--- NOTE | 2017-05-12 09:43 | HHI.PR ---
Subjective Remarks supertight, burnign urinatinon, pt denies fever/ diarrhea/ nausea/ headaches denies abodminal pain monday, started- mom noticed pt was tighter than normal, family would hold her a lot went to neurologist today- Dr Hairston in [place] hx of Cerebral palsy pt would cry with tightness per mom, no nausea/ vomiting/ diarrhea/ blood in stool or urination no abdominal pain no confusion not on anitbiotics at home no daycare program no sick contact has therapist who comes in for PT, who also works at school system straight cath once or twice a month- by parents about 2.5 weeks ago, straight cath was done, was cloudy and sediments at that time went to ER then, and urine was negative - in [place] peg tube placed about 15yrs ago, changed at home by mom every 6 months had once some leakage into peritoneal area about 14yrs ago and needed to drain it- but since then nothing happened no bed sores 11-8 LONG DISCUSSION WITH FAMILY HAS HAD INCREASED SPASTICITY FOR AT LEAST THE PAST FEW MONTHS WILL ASK DR RUCKER TO SEE REGARDING THE SPASTICITY DW RN AND FAMILY FLUIDS ADJUST MEDS PAIN CONTROL 11-9 patient had CAT scans of the cervical thoracic and lumbar regions as well as the abdomen and pelvis Only showed scoliosis and constipation Have discussed with family in the room since the patient is nonverbal Have started her on low-dose Ativan 0.5 mg every 6 hours with some improvement Await rehabilitation medicine input Continue physical therapy and occupational therapy Continue antibiotics for urinary tract infection Continues to slowly improve Multiple questions answered for mother 11-10 NO GROWTH ON UTI SO FAR [facility] REHAB PHYSICIAN - WILL BE SEEN LATER TODAY ON [employer] LFTS HAS HAD ZANAFLEX AND ATIVAN APPEARS MORE RELAXED- LESS SPASTIC TODAY Objective Vitals Vital Signs Date Time Temp Pulse Resp B/P (MAP) Pulse Ox O2 Delivery O2 Flow Rate FiO2 05/12/17 08:00 96.9 70 20 119/73 (88) 99 05/12/17 04:00 97.3 100 18 120/89 (99) 98 05/12/17 00:00 93.2 67 17 95/53 (67) 99 05/11/17 23:12 88 05/11/17 20:12 97.7 138 20 157/111 (126) 98 05/11/17 20:00 98.1 120 17 133/90 (104) 96 05/11/17 16:00 98.4 114 18 124/76 (92) 97 05/11/17 12:00 96.9 102 20 116/71 (86) 98 I/O 05/11/17 05/11/17 05/11/17 05/12/17 05/12/17 05/12/17 07:00 15:00 23:00 07:00 15:00 23:00 Intake Total 798 ml 240 ml 1480 ml 637 ml 100 ml Output Total 400 ml Balance 798 ml 240 ml 1080 ml 637 ml 100 ml Intake Oral 0 ml 240 ml 480 ml 0 ml 100 ml IV Total 798 ml 1000 ml 637 ml Output Urine Total 400 ml # Voids 1 3 # Bowel Movements 1 Result Diagram: 05/12/1751905/12/17519 Other Results Laboratory Tests Test 05/09/17 17:35 05/09/17 17:40 05/09/17 19:03 05/09/17 19:53 White Blood Count 29.7 TH/MM3 Red Blood Count 4.83 MIL/MM3 Hemoglobin 14.4 GM/DL Hematocrit 42.4 % Mean Corpuscular Volume 87.7 FL Mean Corpuscular Hemoglobin 29.9 PG Mean Corpuscular Hemoglobin Concent 34.1 % Red Cell Distribution Width 13.4 % Platelet Count 409 TH/MM3 Mean Platelet Volume 8.7 FL Neutrophils (%) (Auto) 93.2 % Lymphocytes (%) (Auto) 2.5 % Monocytes (%) (Auto) 3.7 % Eosinophils (%) (Auto) 0.1 % Basophils (%) (Auto) 0.5 % Neutrophils # (Auto) 27.7 TH/MM3 Lymphocytes # (Auto) 0.7 TH/MM3 Monocytes # (Auto) 1.1 TH/MM3 Eosinophils # (Auto) 0.0 TH/MM3 Basophils # (Auto) 0.2 TH/MM3 CBC Comment AUTO DIFF Differential Total Cells Counted 100 Neutrophils % (Manual) 89 % Band Neutrophils % 7 % Lymphocytes % 1 % Monocytes % 2 % Basophils % 1 % Neutrophils # (Manual) 28.5 TH/MM3 Differential Comment FINAL DIFF MANUAL Toxic Vacuolation PRESENT Platelet Estimate NORMAL Platelet Morphology Comment NORMAL Blood Urea Nitrogen 21 MG/DL Creatinine 0.65 MG/DL Random Glucose 89 MG/DL Total Protein 8.2 GM/DL Albumin 4.3 GM/DL Calcium Level 8.7 MG/DL Alkaline Phosphatase 75 U/L Aspartate Amino Transf (AST/SGOT) 55 U/L Alanine Aminotransferase (ALT/SGPT) 40 U/L Total Bilirubin 0.6 MG/DL Sodium Level 143 MEQ/L Potassium Level 4.9 MEQ/L Chloride Level 109 MEQ/L Carbon Dioxide Level 19.9 MEQ/L Anion Gap 14 MEQ/L Estimat Glomerular Filtration Rate 110 ML/MIN Lipase 106 U/L Urine Color YELLOW Urine Turbidity CLEAR Urine pH 5.5 Urine Specific Wiggins 1.026 Urine Protein TRACE mg/dL Urine Glucose (UA) NEG mg/dL Urine Ketones NEG mg/dL Urine Occult Blood TRACE Urine Nitrite NEG Urine Bilirubin NEG Urine Urobilinogen LESS THAN 2.0 MG/DL Urine Leukocyte Esterase TRACE Urine RBC 4 /hpf Urine WBC 4 /hpf Urine Squamous Epithelial Cells 3 /hpf Urine Bacteria RARE /hpf Microscopic Urinalysis Comment CATH-CULTURE IND Lactic Acid Level 1.1 mmol/L Adenovirus (PCR) NOT DETECTED Bordetella holmesii (PCR) NOT DETECTED Bordetella pertussis DNA (PCR) NOT DETECTED B. parapertussis/bronchi (PCR) NOT DETECTED Human Metapneumovirus (PCR) NOT DETECTED Influenza Type A (RT-PCR) NOT DETECTED Influenza Type A (H1) (PCR) NOT DETECTED Influenza Type A (H3) (PCR) NOT DETECTED Influenza Type B (RT-PCR) NOT DETECTED Parainfluenza Type 1 (PCR) NOT DETECTED Parainfluenza Type 2 (PCR) NOT DETECTED Parainfluenza Type 3 (PCR) NOT DETECTED Parainfluenza Type 4 (PCR) NOT DETECTED Resp Syncytial Virus Type A (PCR) NOT DETECTED Resp Syncytial Virus Type B (PCR) NOT DETECTED Rhinovirus (PCR) NOT DETECTED Test 05/10/17 06:43 05/11/17 14:32 05/12/17 05:20 White Blood Count 13.8 TH/MM3 9.1 TH/MM3 6.6 TH/MM3 Red Blood Count 4.44 MIL/MM3 4.36 MIL/MM3 4.49 MIL/MM3 Hemoglobin 13.2 GM/DL 12.9 GM/DL 13.3 GM/DL Hematocrit 38.5 % 38.0 % 38.6 % Mean Corpuscular Volume 86.8 FL 87.2 FL 86.1 FL Mean Corpuscular Hemoglobin 29.7 PG 29.6 PG 29.6 PG Mean Corpuscular Hemoglobin Concent 34.2 % 33.9 % 34.4 % Red Cell Distribution Width 13.4 % 13.4 % 13.1 % Platelet Count 264 TH/MM3 296 TH/MM3 315 TH/MM3 Mean Platelet Volume 8.8 FL 8.2 FL 8.6 FL Neutrophils (%) (Auto) 83.6 % 71.8 % 63.1 % Lymphocytes (%) (Auto) 8.8 % 16.8 % 23.4 % Monocytes (%) (Auto) 7.0 % 10.7 % 12.3 % Eosinophils (%) (Auto) 0.1 % 0.2 % 0.7 % Basophils (%) (Auto) 0.5 % 0.5 % 0.5 % Neutrophils # (Auto) 11.6 TH/MM3 6.5 TH/MM3 4.1 TH/MM3 Lymphocytes # (Auto) 1.2 TH/MM3 1.5 TH/MM3 1.5 TH/MM3 Monocytes # (Auto) 1.0 TH/MM3 1.0 TH/MM3 0.8 TH/MM3 Eosinophils # (Auto) 0.0 TH/MM3 0.0 TH/MM3 0.0 TH/MM3 Basophils # (Auto) 0.1 TH/MM3 0.0 TH/MM3 0.0 TH/MM3 CBC Comment DIFF FINAL DIFF FINAL DIFF FINAL Differential Comment Blood Urea Nitrogen 14 MG/DL 15 MG/DL 11 MG/DL Creatinine 0.39 MG/DL 0.61 MG/DL 0.48 MG/DL Random Glucose 69 MG/DL 100 MG/DL 92 MG/DL Calcium Level 8.8 MG/DL 8.6 MG/DL 8.5 MG/DL Sodium Level 142 MEQ/L 139 MEQ/L 142 MEQ/L Potassium Level 4.2 MEQ/L 4.3 MEQ/L 3.7 MEQ/L Chloride Level 107 MEQ/L 104 MEQ/L 106 MEQ/L Carbon Dioxide Level 23.6 MEQ/L 27.1 MEQ/L 26.4 MEQ/L Anion Gap 11 MEQ/L 8 MEQ/L 10 MEQ/L Estimat Glomerular Filtration Rate 199 ML/MIN 119 ML/MIN 156 ML/MIN Total Protein 7.0 GM/DL 7.0 GM/DL Albumin 3.6 GM/DL 3.7 GM/DL Phosphorus Level 2.4 MG/DL 3.2 MG/DL Magnesium Level 2.3 MG/DL 2.2 MG/DL Alkaline Phosphatase 60 U/L 62 U/L Aspartate Amino Transf (AST/SGOT) 127 U/L 134 U/L Alanine Aminotransferase (ALT/SGPT) 61 U/L 67 U/L Total Bilirubin 0.6 MG/DL 0.7 MG/DL Hemoglobin A1c 4.8 % Free Thyroxine 1.51 NG/DL Thyroid Stimulating Hormone 3rd Gen 3.730 uIU/ML Imaging Last Impressions Thoracic Spine CT 05/11/17 0000 Signed Impressions: Service Date/Time: May 05:14 - CONCLUSION: Scoliosis. No evidence of disc protrusion or spinal canal stenosis. Iban Begum MD Lumbar Spine CT 05/11/17 Signed Impressions: Service Date/Time: May 05:09 - CONCLUSION: 1. Severe scoliosis. No evidence of disc protrusion or spinal canal stenosis. Iban Begum MD Cervical Spine CT 05/11/17 Signed Impressions: Service Date/Time: May 05:14 - CONCLUSION: 1. Negative examination of the cervical spine Iban Begum MD Abdomen/Pelvis CT 05/11/17 Signed Impressions: Service Date/Time: May 05:09 - CONCLUSION: 1. No evidence of acute abdominal or pelvic process. No masses are identified. 2. Constipation Iban Begum MD Abdomen X-Ray 05/11/17 Signed Impressions: Service Date/Time: May 00:27 - CONCLUSION: 1. No evidence of obstruction. Iban Begum MD Chest X-Ray 05/09/17 1545 Signed Impressions: Service Date/Time: Tuesday, May 09, 2017 18:37 - CONCLUSION: No acute disease. Antoni Mathew Jr., MD Renal Ultrasound 05/09/17 Signed Impressions: Service Date/Time: Tuesday, May 09, 2017 17:53 - CONCLUSION: 1. Normal kidneys. 2. Urinary bladder totally decompressed and not seen. Antoni Mathew Jr., MD Pelvis X-Ray 05/09/17 0000 Signed Impressions: Service Date/Time: Tuesday, May 09, 2017 18:42 - CONCLUSION: Chronic changes as detailed above. No acute abnormality. Antoni Mathew Jr., MD Objective Remarks GENERAL: Flailing all extremities around in no fashion-nonverbal at this time SKIN: Warm and dry. HEAD: Atraumatic. Normocephalic. EYES: Pupils equal and round. No scleral icterus. No injection or drainage. ENT: No nasal bleeding or discharge. Mucous membranes pink and moist. NECK: Trachea midline. No JVD. Neck appears supple CARDIOVASCULAR: Regular rate and rhythm. S1 and S2 no S3 or S4 RESPIRATORY: No accessory muscle use. Clear to auscultation. Breath sounds equal bilaterally. GASTROINTESTINAL: Abdomen soft, non-tender, nondistended. Hepatic and splenic margins not palpable. PEG tube MUSCULOSKELETAL: Extremities without clubbing, cyanosis, or edema. No obvious deformities. Spasticity in upper extremity and lower extremities bilaterally chronic suprapubic catheter NEUROLOGICAL: Awake and alert. No obvious cranial nerve deficits. Motor grossly within normal limits. 4 out of 5 muscle strength in the arms and legs. ABNormal speech. PSYCHIATRIC: INAppropriate mood and affect; insight and judgment ABnormal. Very spastic in upper extremity and lower extremity Medications and IVs Current Medications Acetaminophen (Tylenol Supp) 650 mg ONCE ONCE RECTAL Last administered on 05/09 17:56; Start 05/09/17 at 17:30; Stop 05/09/17 at 17:31; Status DC Sodium Chloride 1,000 ml @ 2,000 mls/hr Q30M ONCE IV Last administered on 05/09 17:56; Start 05/09/17 at 17:30; Stop 05/09/17 at 17:59; Status DC Lorazepam (Ativan Inj) 1 mg ONCE ONCE IV PUSH Last administered on 05/09/17 17:56; Start 05/09/17 at 17:30; Stop 05/09/17 at 17:31; Status DC Sodium Chloride (NS Flush) 2 ml UNSCH PRN IV FLUSH FLUSH AFTER USING IV ACCESS ; Start 05/09/17 at 19:30 Sodium Chloride (NS Flush) 2 ml BID IV FLUSH Last administered on 05/10/17 09: 27; Start 05/09/17 at 21:00 Naloxone HCl (Narcan Inj) 0.4 mg UNSCH PRN IV PUSH SEE LABEL COMMENTS; Start 05/09/17 at 19:30 Ceftriaxone Sodium 1000 mg/ Sodium Chloride 100 ml @ 200 mls/hr ONCE ONCE IV Last administered on 05/09/17 20:05; Start 05/09/17 at 19:30; Stop 05/09/17 at 19:59; Status DC Acetaminophen (Tylenol Supp) 650 mg Q6H PRN RECTAL fever >101; Start 05/10/17 at 01:00 Tizanidine HCl (Zanaflex) 4 mg QID PO Last administered on 05/10/17 12:30; Start 05/10/17 at 09:00; Stop 05/10/17 at 17:05; Status DC Diazepam (Valium) 4 mg HS PEG Last administered on 05/11/17 20:19; Start 05/10 at 21:00 Levofloxacin/ Dextrose 150 ml @ 100 mls/hr Q24H IV Last administered on 09:03; Start 05/10/17 at 09:00 Enoxaparin Sodium (Lovenox Inj) 40 mg Q24H SQ Last administered on 05/12/17 09:03; Start 05/10/17 at 09:00 Mineral Oil (Fleet Mineral Oil Enema) 118 ml DAILY PRN RECTAL constipation Last administered on 05/10/17 20:32; Start 05/10/17 at 01:45 Tizanidine HCl (Zanaflex) 4 mg QID PEG Last administered on 05/12/17 09:03; Start 05/10/17 at 18:00 Lorazepam (Ativan) 0.5 mg Q6H PRN PEG SPASTICITY Last administered on 12:00; Start 05/10/17 at 17:15; Stop 05/11/17 at 17:41; Status DC Potassium Chloride 20 meq/ Sodium Bicarbonate 50 meq/Dextrose/ Sodium Chloride 1 ,060 ml @ 75 mls/hr CONTINUOUS IV Last administered on 05/11/17 20:13; Start 05/10/17 at 18:00 Magnesium Hydroxide (Milk Of Magnesia Liq) 30 ml ONCE ONCE PEG Last administered on 05/10/17 23:55; Start 05/10/17 at 23:30; Stop 05/10/17 at 23:31 ; Status DC Lorazepam (Ativan Inj) 1 mg ONCE ONCE IV PUSH Last administered on 05/11/17 00:36; Start 05/11/17 at 00:30; Stop 05/11/17 at 00:31; Status DC Diatrizoate Meglum/ Diatrizoate Sod ( Gastroview Liq) 18 ml UNSCH X1 PO Last administered on 05/11/17 02:34; Start 05/11/17 at 00:30; Stop 05/11/17 at 01:06; Status DC Iohexol (Omnipaque 350 Inj) 40 ml STK-MED ONCE IVCONTRAST Last administered on 05/11/17 05:20; Start 05/11/17 at 05:20; Stop 05/11/17 at 05:21; Status DC Polyethylene Glycol (Miralax) 17 gm DAILY PEG Last administered on 05/12/17 09:10; Start 05/11/17 at 12:00 Lorazepam (Ativan) 1 mg Q6H PRN PEG SPASTICITY Last administered on 05/12/17 04:54; Start 05/11/17 at 23:15 Acetaminophen/ Hydrocodone Bitart (Hycet 325-7.5 Mg Liq) 10 ml Q6H PRN PO PAIN 1-10 Last administered on 05/12/17 03:45; Start 05/11/17 at 19:45 A/P Assessment and Plan Assessment and Plan uti febrile illness sirs worsening spasticity received rocephin and azithromax in er start on levofloxacin in am monitor for fevers turn pt q2hrs softcare mattress no evidence of diarrhea to follow up with viral panel. Would consult rehabilitation medicine/physiatry in regards to recommendations regarding spasticity management. Resume home Zanaflex and Valium. PAIN CONTROL FLUIDS ANTIBIOTICS MEEK RN AND FAMILY ANTISPASM MEDS FOR HER SPASTICITY Is on her Zanaflex and her Valium and has been added a low dose Ativan 1MG every 6 via PEG May need a larger specialized Hospital CONSULTED REHAB PHYSICIAN- [facility] Discharge Planning MAY NEED A LARGER HOSPITAL WITH SPECIALISTS IN [place] [facility] [place] AWAIT REHAB PHYSICIAN Rod Trammell DO May 12, 2017 09:43
[2017-05-12 12:00] VITALS: BP 110/79; PULSE 105; RESP 20; TEMP 97.9; O2SAT 95
[2017-05-12] MEDS ORDERED: ACETAMINOPHEN 325MG/HYDROcodone 7.5MG/15ML UDC PEG PRN (13:45)
[2017-05-12] MEDS: DIAZEPAM 2 MG TAB PEG SCH (21:02)
[2017-05-12 21:22] VITALS: BP 89/60; PULSE 80; RESP 16; TEMP 96.5; O2SAT 99
[2017-05-13] VITALS (7 sets, daily range): BP systolic 89–135; BP diastolic 56–85; PULSE 76–123; RESP 16–20; TEMP 97–99.2; O2SAT 97–99
[2017-05-13] MEDS: POTASSIUM CHLORIDE INJ 20 MEQ, SODIUM BICARBONATE 8.4% INJ 50 MEQ in DEXT 5%-NACL 0.45%... IV SCH (01:54)
[2017-05-13 04:49] LABS: ANION GAP 8 MEQ/L (5-15); AST (GOT) 83 U/L (15-37); BICARBONATE 25.4 MEQ/L (21.0-32.0); BLOOD UREA NITROGEN 4 MG/DL (7-18); CHLORIDE 107 MEQ/L (98-107); GLOMERULAR FILTRATION RATE 205 ML/MIN (>89); MAGNESIUM 2.2 MG/DL (1.5-2.5); POTASSIUM 4.1 MEQ/L (3.5-5.1); SODIUM (NA) 140 MEQ/L (136-145)
[2017-05-13 04:53] LABS: ALKALINE PHOSPHATASE 58 U/L (45-117); ALT (GPT) 58 U/L (10-53); TOTAL BILIRUBIN ADULT 0.7 MG/DL (0.2-1.0)
[2017-05-13 05:09] LABS: AUTOMATED NEUTROPHIL # 2.3 TH/MM3 (1.8-7.7); BASOPHIL % 0.7 % (0.0-2.0); EOSINOPHIL # 0.1 TH/MM3 (0-0.4); EOSINOPHIL % 1.8 % (0.0-4.0); HEMATOCRIT 36.5 % (35.0-46.0); HEMO FLAGS DIFF FINAL; LYMPH % 36.8 % (9.0-44.0); LYMPHOCYTE # 1.7 TH/MM3 (1.0-4.8); MEAN CORPUSCULAR HEMOGLOBIN 30.2 PG (27.0-34.0); MEAN CORPUSCULAR HGB CONC 34.7 % (32.0-36.0); MONO % 11.2 % (0.0-8.0); NEUT % 49.5 % (16.0-70.0); PLATELET COUNT 280 TH/MM3 (150-450); RED CELL DISTRIBUTION WIDTH 13.5 % (11.6-17.2); WHITE BLOOD COUNT 4.6 TH/MM3 (4.0-11.0)
[2017-05-13] MEDS: ENOXAPARIN SODIUM 40 MG/0.4 ML SYRINGE SQ SCH (09:03)
[2017-05-13] MEDS: LORazepam 1 MG TAB PEG PRN (09:03)
[2017-05-13] MEDS: LEVOFLOXACIN 750 MG PREMIX INJ 150 ML IV SCH (09:04)
[2017-05-13] MEDS: POLYETHYLENE GLYCOL 17 GM PKG PEG SCH (09:04)
[2017-05-13] MEDS: SODIUM CHLORIDE 0.9% FLUSH 10 ML FLUSH IV FLUSH SCH ×2 (09:04→21:00)
--- NOTE | 2017-05-13 11:36 | PD.CONS ---
[facility] Service Rehabilitation Medicine Consult Requested By Jered Good MD Reason for Consult Comprehensive rehabilitation evaluation. Primary Care Physician No Primary Care Physician History of Present Illness Jamilah Blackmon is a 27 year old female with history of quadriplegic cerebral palsy with severe spasticity. Spasticity has been present since a child but has worsened in the last several weeks. No history of trauma. No recent change in medication. Parents feel that patient may be in pain but difficult to localize. They feel that her right hip may be painful. She in the past underwent Baclofen pump placement approximately 15 years ago but this was removed due to infection and erosion of pump. She has been maintained on Zanaflex 4 mg tid and Valium 4 mg hs. During this hospitalization she has been treated for possible UTI. CT of cervical, thoracic and lumbar spine showed scoliosis but no significant disc protrusion or bony injury. Skin is intact. There has not been any change in bowel or bladder function. All history from parents. Review of Systems ROS Limitations: Clinical Condition, Altered Mental Status, Speech Impaired Past Family Social History Allergies: Coded Allergies: lactose (Unverified Allergy, Severe, 05/09/17) Uncoded Allergies: TAPE (Allergy, Severe, SKIN REACTION, 04/11/08) Past Medical History Cerebral palsy Urinary retention Past Surgical History Gtube Left LE tendon release Rhizotomy Current Medications Current Medications Medications (Trade) Dose Ordered Sig/Kayla Route Start Time Stop Time Status Last Admin (NS Flush) 2 ml UNSCH PRN IV FLUSH 05/09/17 19:30 (NS Flush) 2 ml BID IV FLUSH 05/09/17 21:00 05/13/17 09:04 (Narcan Inj) 0.4 mg UNSCH PRN IV PUSH 05/09/17 19:30 (Tylenol Supp) 650 mg Q6H PRN RECTAL 05/10/17 01:00 (Valium) 4 mg HS PEG 05/10/17 21:00 05/12/17 21:02 Levofloxacin/ Dextrose 150 ml @ 100 mls/hr Q24H IV 05/10/17 09:00 05/13/17 09:04 (Lovenox Inj) 40 mg Q24H SQ 05/10/17 09:00 05/13/17 09:03 (Fleet Mineral Oil Enema) 118 ml DAILY PRN RECTAL 05/10/17 01:45 05/10/17 20:32 (Zanaflex) 4 mg QID PEG 05/10/17 18:00 05/13/17 09:04 Potassium Chloride 20 meq/ Sodium Bicarbonate 50 meq/Dextrose/ Sodium Chloride 1,060 ml @ 75 mls/hr CONTINUOUS IV 05/10/17 18:00 05/13/17 01:54 (Miralax) 17 gm DAILY PEG 05/11/17 12:00 05/13/17 09:04 (Ativan) 1 mg Q6H PRN PEG 05/11/17 23:15 05/13/17 09:03 (Hycet 325-7.5 Mg Liq) 5 ml Q6H PRN PEG 05/12/17 13:45 Family History Noncontributory to HPI Mother: Stefan DM Social History Lives with parents. Dependent for all ADL's and mobility Exam I&O / VS Vital Signs Date Time Temp Pulse Resp B/P (MAP) Pulse Ox O2 Delivery O2 Flow Rate FiO2 05/13/17 08:00 100 05/13/17 08:00 99.0 123 18 130/79 (96) 97 05/13/17 04:59 97.8 83 18 115/70 (85) 98 05/13/17 01:01 97.0 76 16 89/57 (68) 98 05/12/17 21:22 96.5 80 16 89/60 (70) 99 05/12/17 12:00 97.9 105 20 110/79 (89) 95 General: No acute distress Respiratory: Lungs CTA, Non-labored respirations, BS equal Gastrointestinal: Positive Bowel Sounds, Non-Distended Cardiovascular: Normal rate, Regular Rhythm Skin: Other (No rash noted) Musculoskeletal: ROM (Patient appears to be uncomfortable with right hip rotation), Swelling (None in distal LE) Neurologic: Speech (Patient communicates by protruding tongue for yes.) Motor: Right Upper Extremity (Elbow and wrist flexion MAS 3), Left Upper Extremity (Elbow and wrist flexion MAS 3), Right Lower Extremity (Hip flexor tone MAS 2-3; knee flexion MAS 2-3), Left Lower Extremity (Hip flexor tone MAS 2 -3; knee flexion MAS 2-3) DTRs: Abnormal (Brisk throughout) Babinski: Positive (Euqivocal bilaterally) Clonus: Negative Assessment and Plan Diagnosis: (1) Cerebral palsy ICD Codes: G80.9 - Cerebral palsy, unspecified Qualifiers: Cerebral palsy type: unspecified type Qualified Codes: G80.9 - Cerebral palsy, unspecified (2) Spastic quadriplegia ICD Codes: G82.50 - Quadriplegia, unspecified Assessment 1. Patient with increase in spasticity primarily in LE. Will proceed with CT of right hip to evaluate for bony dislocation or fracture 2. Baclofen 5 mg per PEG tid 3. LFT's reviewed 4. Will follow in outpatient clinic 5. Continue Valium 4 mg hs and prn Ativan as this has provided some relief. Would not combine these 2 meds 6. Continue Zanaflex at current dose Shonda Camargo MD May 13, 2017 11:36
[2017-05-13] MEDS ORDERED: PILL SPLITTER OTHER PRN (11:45)
[2017-05-13] MEDS: BACLOFEN 10 MG TAB G-TUBE SCH (15:01)
--- NOTE | 2017-05-13 16:27 | HHI.PR ---
Subjective Remarks family at bedside - states that patient show signs of pain when she is laid over her right hip. Patient is nonverbal. Patient is afebrile, noted to be lightly hypotensive last night, however BP improved. Objective Vitals Vital Signs Date Time Temp Pulse Resp B/P (MAP) Pulse Ox O2 Delivery O2 Flow Rate FiO2 05/13/17 12:00 97.9 94 17 109/68 (82) 99 05/13/17 08:00 100 05/13/17 08:00 99.0 123 18 130/79 (96) 97 05/13/17 04:59 97.8 83 18 115/70 (85) 98 05/13/17 01:01 97.0 76 16 89/57 (68) 98 05/12/17 21:22 96.5 80 16 89/60 (70) 99 I/O 05/12/17 05/12/17 05/12/17 05/13/17 05/13/17 05/13/17 07:00 15:00 23:00 07:00 15:00 23:00 Intake Total 637 ml 220 ml 480 ml 150 ml Output Total 400 ml Balance 637 ml 220 ml 80 ml 150 ml Intake Oral 0 ml 220 ml 480 ml IV Total 637 ml 150 ml Output Urine Total 400 ml # Voids 3 2 # Bowel Movements 1 Result Diagram: 05/13/17 0356 05/13/17 0356 Imaging Last Impressions Thoracic Spine CT 05/11/17 0000 Signed Impressions: Service Date/Time: May 05:14 - CONCLUSION: Scoliosis. No evidence of disc protrusion or spinal canal stenosis. Iban Begum MD Lumbar Spine CT 05/11/17 0000 Signed Impressions: Service Date/Time: May 05:09 - CONCLUSION: 1. Severe scoliosis. No evidence of disc protrusion or spinal canal stenosis. Iban Begum MD Cervical Spine CT 05/11/17 0000 Signed Impressions: Service Date/Time: May 05:14 - CONCLUSION: 1. Negative examination of the cervical spine Iban Begum MD Abdomen/Pelvis CT 05/11/17 0000 Signed Impressions: Service Date/Time: May 05:09 - CONCLUSION: 1. No evidence of acute abdominal or pelvic process. No masses are identified. 2. Constipation Iban Begum MD Abdomen X-Ray 05/11/17 0000 Signed Impressions: Service Date/Time: May 00:27 - CONCLUSION: 1. No evidence of obstruction. Iban Begum MD Chest X-Ray 05/09/17 1725 Signed Impressions: Service Date/Time: Tuesday, May 09, 2017 18:37 - CONCLUSION: No acute disease. Antoni Mathew Jr., MD Renal Ultrasound 05/09/17 0000 Signed Impressions: Service Date/Time: Tuesday, May 09, 2017 17:53 - CONCLUSION: 1. Normal kidneys. 2. Urinary bladder totally decompressed and not seen. Antoni Mathew Jr., MD Pelvis X-Ray 05/09/17 0000 Signed Impressions: Service Date/Time: Tuesday, May 09, 2017 18:42 - CONCLUSION: Chronic changes as detailed above. No acute abnormality. Antoni Mathew Jr., MD Objective Remarks GENERAL: Patient is awake and alert, nad, lying in bed. SKIN: Warm and dry. HEAD: Atraumatic. Normocephalic. EYES: Pupils equal and round. No scleral icterus. No injection or drainage. ENT: No nasal bleeding or discharge. Mucous membranes pink and moist. NECK: Trachea midline. No JVD. Neck appears supple CARDIOVASCULAR: Regular rate and rhythm. S1 and S2 no S3 or S4 RESPIRATORY: No accessory muscle use. Clear to auscultation. Breath sounds equal bilaterally. GASTROINTESTINAL: Abdomen soft, non-tender, nondistended. Hepatic and splenic margins not palpable. PEG tube MUSCULOSKELETAL: Extremities without clubbing, cyanosis, or edema. No obvious deformities. Very contracted an upper and lower extremities. NEUROLOGICAL: Awake and alert. No obvious cranial nerve deficits. Motor grossly within normal limits. 4 out of 5 muscle strength in the arms and legs. Patient is nonverbal. PSYCHIATRIC: Insight and judgment are affected due to cerebral palsy. Very spastic in upper extremity and lower extremity Procedures None Medications and IVs Current Medications Medications (Trade) Dose Ordered Sig/Kayla Route Start Time Stop Time Status Last Admin (NS Flush) 2 ml UNSCH PRN IV FLUSH 05/09/17 19:30 (NS Flush) 2 ml BID IV FLUSH 05/09/17 21:00 05/13/17 09:04 (Narcan Inj) 0.4 mg UNSCH PRN IV PUSH 05/09/17 19:30 (Tylenol Supp) 650 mg Q6H PRN RECTAL 05/10/17 01:00 (Valium) 4 mg HS PEG 05/10/17 21:00 05/12/17 21:02 Levofloxacin/ Dextrose 150 ml @ 100 mls/hr Q24H IV 05/10/17 09:00 05/13/17 09:04 (Lovenox Inj) 40 mg Q24H SQ 05/10/17 09:00 05/13/17 09:03 (Fleet Mineral Oil Enema) 118 ml DAILY PRN RECTAL 05/10/17 01:45 05/10/17 20:32 (Zanaflex) 4 mg QID PEG 05/10/17 18:00 05/13/17 12:52 Potassium Chloride 20 meq/ Sodium Bicarbonate 50 meq/Dextrose/ Sodium Chloride 1,060 ml @ 75 mls/hr CONTINUOUS IV 05/10/17 18:00 05/13/17 01:54 (Miralax) 17 gm DAILY PEG 05/11/17 12:00 05/13/17 09:04 (Ativan) 1 mg Q6H PRN PEG 05/11/17 23:15 05/13/17 09:03 (Hycet 325-7.5 Mg Liq) 5 ml Q6H PRN PEG 05/12/17 13:45 (Lioresal) 5 mg Q8HR G-TUBE 05/13/17 14:00 05/13/17 15:01 (Pill Splitter) 1 ea UNSCH PRN OTHER 05/13/17 11:45 Urinary Catheter: No Vascular Central Line Catheter: No A/P Problem List: (1) Sepsis ICD Code: A41.9 - Sepsis, unspecified organism Status: Acute Plan: Likely secondary to urinary tract infection. The patient status post imaging of the cervical, lumbar and thoracic spine, chest x-ray, pelvis x-ray which were negative for infection. Renal ultrasound showed normal kidneys. Present on admission with leukocytosis of 20 9.7K, tachycardia with a heart rate of 145. Status post Rocephin in the ED. Currently on IV levofloxacin. Continue. Sepsis improving, with improved tachycardia and resolved leukocytosis. (2) UTI (urinary tract infection) ICD Code: N39.0 - Urinary tract infection, site not specified Plan: As above. Urine culture negative in 48 hours. (3) Spasticity ICD Code: R25.2 - Cramp and spasm Status: Acute Plan: Discussed the case with Dr. Jeffers from rehabilitation medicine. The patient will be started on baclofen. CT of the right hip ordered as per rehabilitation medicine commendations. (4) Fever ICD Code: R50.9 - Fever, unspecified Status: Acute Plan: Fever now resolved. Likely secondary to urinary tract infection. Assessment and Plan DVT prophylaxis: SCDs. Discharge Planning Discharge pending CT of the hip. Clinical improvement regarding the patient spasticity. Kenny Paulson MD May 13, 2017 16:27
[2017-05-13] MEDS: DIAZEPAM 2 MG TAB PEG SCH (21:49)
[2017-05-14] VITALS: BP 122/86; PULSE 81; RESP 18; TEMP 96.7; O2SAT 99
[2017-05-14] MEDS: BACLOFEN 10 MG TAB G-TUBE SCH ×3 (00:46→13:18)
[2017-05-14 04:00] VITALS: BP 133/84; PULSE 85; RESP 18; TEMP 96.4; O2SAT 99
[2017-05-14] MEDS: LORazepam 1 MG TAB PEG PRN ×2 (07:11→15:45)
[2017-05-14 08:00] VITALS: BP 121/85; PULSE 110; RESP 18; TEMP 97.3; O2SAT 96
[2017-05-14] MEDS: POLYETHYLENE GLYCOL 17 GM PKG PEG SCH (09:00)
--- NOTE | 2017-05-14 09:14 | RADRPT ---
EXAM DATE/TIME: 05/14/2017 08:30 [place] COMPARISON: No previous studies available for comparison. INDICATIONS : Pain Right hip. Sepsis, fever, increased spasms. RADIATION DOSE: 6.19 CTDIvol (mGy) MEDICAL HISTORY : Cerebral palsey SURGICAL HISTORY : Feeding tube, buclorfer pump ENCOUNTER: Initial ACUITY: 1 day PAIN SCALE: Non-responsive LOCATION: Right Hip TECHNIQUE: Volumetric scanning of the hip was performed. Using automated exposure control and adjustment of the mA and/or kV according to patient size, radiation dose was kept as low as reasonably achievable to o btain optimal diagnostic quality images. DICOM format image data is available electronically for rev iew and comparison. FINDINGS: BONES: Destructive sclerotic deformity is identified of the left proximal femur. Bones are severely deminera lized. There no findings to suggest acute fracture. JOINTS: Mild arthropathy is identified in the right hip. There is joint space narrowing with mild remodeling of the articulating surfaces. There are no destructive changes or stones a joint effusion. Marked deformity is identified of the left hip. The femoral head is completely destroyed. There is sclerosis and spurring seen in the proximal femur. The acetabulum is widened and there is periarti cular soft tissue fullness. These changes appear chronic and are characteristic of a Charcot joint.. SOFT TISSUES: Significant soft tissue swelling is identified surrounding the left hip. No evidence of mass, organiz ed fluid collection, or foreign body. CONCLUSION: 1. Unremarkable right hip except for mild arthropathy. No evidence of destructive bone changes, joint effusion or periarticular fluid collections. 2. Severe deformity of the left hip which has the appearance of a Charcot joint 3. Severe bone demineralization. 4. Note is acute fracture. Edwardo Madera MD on May 14, 2017 at 9:06 Board Certified Radiologist. This report was verified electronically.
[2017-05-14] MEDS: LEVOFLOXACIN 750 MG PREMIX INJ 150 ML IV SCH (10:18)
[2017-05-14] MEDS: SODIUM CHLORIDE 0.9% FLUSH 10 ML FLUSH IV FLUSH SCH (10:21)
[2017-05-14] MEDS: ENOXAPARIN SODIUM 40 MG/0.4 ML SYRINGE SQ SCH (10:22)
[2017-05-14 12:00] VITALS: BP 114/68; PULSE 119; RESP 18; TEMP 98.4; O2SAT 98
[2017-05-14] MEDS ORDERED: LORA-474 PEG (13:38)
[2017-05-14] MEDS ORDERED: BACL10TA G-TUBE (13:38)
--- NOTE | 2017-05-14 13:39 | HHI.DCPOC ---
Discharge Care Plan Diagnosis: (1) Sepsis (2) UTI (urinary tract infection) (3) Spasticity (4) Fever Goals to Promote Your Health * To prevent worsening of your condition and complications * To maintain your health at the optimal level Directions to Meet Your Goals Take your medications as prescribed Follow your dietary instruction Follow activity as directed Keep your appointments as scheduled Take your immunizations and boosters as scheduled If your symptoms worsen call your PCP, if no PCP go to Urgent Care Center or Emergency Room Smoking is Dangerous to Your Health. Avoid second hand smoke Call the 24-hour hour crisis hotline for domestic abuse at Kenny Paulson MD May 14, 2017 13:39
--- NOTE | 2017-05-14 13:44 | HHI.DS ---
Discharge Summary Admission Date May 09, 2017 at 19:27 Discharge Date: May 14, 2017 Admitting Diagnosis sepsis, fever, increased spasticity (1) Sepsis ICD Code: A41.9 - Sepsis, unspecified organism Diagnosis: Principal Status: Resolved (2) UTI (urinary tract infection) ICD Code: N39.0 - Urinary tract infection, site not specified Diagnosis: Principal Status: Resolved (3) Spasticity ICD Code: R25.2 - Cramp and spasm Diagnosis: Principal Status: Acute (4) Fever ICD Code: R50.9 - Fever, unspecified Diagnosis: Principal Status: Resolved Procedures None Brief History - From Admission hx from patient's parents at the bedside, ER physician communication and review of medical records Patient's parents reported that patient was having episodes at home for the past few weeks where she would become supertight, and would have increased spasms. They also report of severe diaphoresis with these episodes. 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 However she is able to answer yes or no questions by stinks out her tongue. She reports a burning urination. She denies fevers/diarrhea/nausea/headaches/abdominal pains. Mom noticed the patient was getting more and more spastic and tighter than her normal and they would have to hold her all day long. Therefore they went to her neurologist in [place] who sent her to hospital. per mom, no nausea/ vomiting/ diarrhea/ blood in stool or urination no abdominal pain no confusion not on anitbiotics at home no daycare program no sick contact has therapist who comes in for PT, who also works at school system straight cath once or twice a month- by parents about 2.5 weeks ago, straight cath was done, was cloudy and sediments at that time went to ER then, and urine was negative - in [place] peg tube placed about 15yrs ago, changed at home by mom every 6 months had once some leakage into peritoneal area about 14yrs ago and needed to drain it- but since then nothing happened no bed sores Patient's parents are also worried about patient not having enough nutrition. Patient has been extremely thin. She does not like PEG tube feeding. She therefore usually just gets medications and water through her PEG tube but she would take her meals orally. She would have to have her meals chopped up by her mom and she would eat them. She also does not like the taste of Ensure and therefore was not getting any supplements. Parents report that the patient used to have baclofen pump previously but patient would literally get the pump out of her skin because of her movements and body being too thin. She also had infection with MSSA with baclofen pump. CBC/BMP: 05/13/17 0356 05/13/17 0356 Significant Findings Laboratory Tests Test 05/11/17 14:32 05/12/17 05:20 05/13/17 03:56 Neutrophils (%) (Auto) 71.8 % (16.0-70.0) Monocytes (%) (Auto) 10.7 % (0.0-8.0) 12.3 % (0.0-8.0) 11.2 % (0.0-8.0) Monocytes # (Auto) 1.0 TH/MM3 (0-0.9) Phosphorus Level 2.4 MG/DL (2.5-4.9) Aspartate Amino Transf (AST/SGOT) 127 U/L (15-37) 134 U/L (15-37) 83 U/L (15-37) Alanine Aminotransferase (ALT/SGPT) 61 U/L (10-53) 67 U/L (10-53) 58 U/L (10-53) Free Thyroxine 1.51 NG/DL (0.76-1.46) Creatinine 0.48 MG/DL (0.50-1.00) 0.38 MG/DL (0.50-1.00) Blood Urea Nitrogen 4 MG/DL (7-18) Total Protein 6.3 GM/DL (6.4-8.2) Albumin 3.2 GM/DL (3.4-5.0) Calcium Level 8.3 MG/DL (8.5-10.1) Imaging Last Impressions Lower Extremity CT 05/13/17 0000 Signed Impressions: Service Date/Time: Sunday, May 14, 2017 08:30 - CONCLUSION: 1. Unremarkable right hip except for mild arthropathy. No evidence of destructive bone changes, joint effusion or periarticular fluid collections. 2. Severe deformity of the left hip which has the appearance of a Charcot joint 3. Severe bone demineralization. 4. Note is acute fracture. Edwardo Madera MD Thoracic Spine CT 05/11/17 0000 Signed Impressions: Service Date/Time: May 05:14 - CONCLUSION: Scoliosis. No evidence of disc protrusion or spinal canal stenosis. Iban Begum MD Lumbar Spine CT 05/11/17 Signed Impressions: Service Date/Time: May 05:09 - CONCLUSION: 1. Severe scoliosis. No evidence of disc protrusion or spinal canal stenosis. Iban Begum MD Cervical Spine CT 05/11/17 Signed Impressions: Service Date/Time: May 05:14 - CONCLUSION: 1. Negative examination of the cervical spine Iban Begum MD Abdomen/Pelvis CT 05/11/17 Signed Impressions: Service Date/Time: May 05:09 - CONCLUSION: 1. No evidence of acute abdominal or pelvic process. No masses are identified. 2. Constipation Iban Begum MD Abdomen X-Ray 05/11/17 Signed Impressions: Service Date/Time: May 00:27 - CONCLUSION: 1. No evidence of obstruction. Iban Begum MD Chest X-Ray 05/09/17 1725 Signed Impressions: Service Date/Time: Tuesday, May 09, 2017 18:37 - CONCLUSION: No acute disease. Antoni Mathew Jr., MD Renal Ultrasound 05/09/17 Signed Impressions: Service Date/Time: Tuesday, May 09, 2017 17:53 - CONCLUSION: 1. Normal kidneys. 2. Urinary bladder totally decompressed and not seen. Antoni Mathew Jr., MD Pelvis X-Ray 05/09/17 Signed Impressions: Service Date/Time: Tuesday, May 09, 2017 18:42 - CONCLUSION: Chronic changes as detailed above. No acute abnormality. Antoni Mathew Jr., MD PE at Discharge GENERAL: Patient is awake and alert, nad, lying in bed. SKIN: Warm and dry. HEAD: Atraumatic. Normocephalic. EYES: Pupils equal and round. No scleral icterus. No injection or drainage. ENT: No nasal bleeding or discharge. Mucous membranes pink and moist. NECK: Trachea midline. No JVD. Neck appears supple CARDIOVASCULAR: Regular rate and rhythm. S1 and S2 no S3 or S4 RESPIRATORY: No accessory muscle use. Clear to auscultation. Breath sounds equal bilaterally. GASTROINTESTINAL: Abdomen soft, non-tender, nondistended. Hepatic and splenic margins not palpable. PEG tube MUSCULOSKELETAL: Extremities without clubbing, cyanosis, or edema. No obvious deformities. Very contracted an upper and lower extremities. NEUROLOGICAL: Awake and alert. No obvious cranial nerve deficits. Motor grossly within normal limits. 4 out of 5 muscle strength in the arms and legs. Patient is nonverbal. PSYCHIATRIC: Insight and judgment are affected due to cerebral palsy. Very spastic in upper extremity and lower extremity Pt update on day of discharge Family at bedside. As per family the patient's spasms have improved significantly after being started on baclofen and she responded really well when she is being administered by mouth Ativan. I discussed the case with Dr. Jeffers who states that patient could follow-up with her after being discharged to titrate the medication to the best possible effect. Patient is afebrile and there are no reports of diarrhea, nausea vomiting. Hospital Course (1) Sepsis Likely secondary to urinary tract infection. The patient status post imaging of the cervical, lumbar and thoracic spine, chest x-ray, pelvis x-ray which were negative for infection. Renal ultrasound showed normal kidneys. Present on admission with leukocytosis of 20 9.7K, tachycardia with a heart rate of 145. Status post Rocephin in the ED. Status post treatment with IV Levaquin with resolution of the sepsis. Urine culture negative 48 hours. Patient will be discharge on oral Levaquin to complete a total of 10 days. (2) UTI (urinary tract infection) As above. Urine culture negative in 48 hours. (3) Spasticity Plan: Discussed the case with Dr. Jeffers from rehabilitation medicine. The patient was started on oral baclofen with very good response. The patient will be discharge on oral baclofen and Ativan by mouth as needed. CT of the right hip ordered as was some concerns for right hip pain and deformity. CT scan was unremarkable the right hip except for mild arthropathy. There is no evidence of bone changes, joint effusion or periarticular fluid collections. Severe deformity with the left hip with have the appearance of a Charcot joint. (4) Fever Plan: Patient was admitted with a MAXIMUM TEMPERATURE of 102.1, fever resolved after treatment of urinary tract infection. DVT prophylaxis: SCDs, Lovenox subcutaneously. Pt Condition on Discharge: Stable Discharge Disposition: Discharge Home Discharge Time: > 30 minutes Discharge Instructions DIET: Follow Instructions for: As Tolerated, No Restrictions Additional Diet Instructions: pureed honey thick Activities you can perform: Continue Bedrest Follow up Referrals: Appointment for Follow Up - 1 Week with Shonda Camargo MD New Medications: Levofloxacin (Levofloxacin) 750 Mg Tablet 750 MG PEG DAILY for Infection, #6 TAB 0 Refills Baclofen (Baclofen) 10 Mg Tab 5 MG G-TUBE Q8HR for muscle spasms, #93 TAB Lorazepam (Ativan) 1 Mg Tab 1 MG PEG Q6HR PRN for SPASTICITY, #30 TAB Continued Medications: Diazepam Liq (Diazepam Liq) 1 Mg/Ml Liq 4 ML PEG HS, ML 0 Refills Tizanidine (Tizanidine) 4 Mg Tab 4 MG PO QID for Muscle Spasm, TAB 0 Refills Kenny Paulson MD May 14, 2017 13:44
[2017-05-14] MEDS ORDERED: LEVO750T3 PEG (13:46)
--- NOTE | 2017-05-14 15:59 | HHI.PR ---
Subjective Subjective Comments Patient resting comfortably in bed. Family reports some improvement in spasticity last night and patient was able to sleep better. Allergies: Coded Allergies: lactose (Unverified Allergy, Severe, 05/09/17) Uncoded Allergies: TAPE (Allergy, Severe, SKIN REACTION, 04/11/08) Exam I&O / VS Vital Signs Date Time Temp Pulse Resp B/P (MAP) Pulse Ox O2 Delivery O2 Flow Rate FiO2 05/14/17 12:00 98.4 119 18 114/68 (83) 98 05/14/17 08:00 97.3 110 18 121/85 (97) 96 05/14/17 04:00 96.4 85 18 133/84 (100) 99 05/14/17 00:00 96.7 81 18 122/86 (98) 99 05/13/17 21:00 90 05/13/17 20:00 99.2 80 20 135/56 (82) 99 05/13/17 16:00 97.4 100 16 129/85 (100) 97 General: No acute distress Skin: Other (No rash noted) Musculoskeletal: Swelling (None in distal LE) Motor: Right Lower Extremity (ROM appears to be less painful) Objective Micro and Labs Date/Time Source Procedure Growth Status 05/09/17 17:35 Blood Peripheral Aerobic Blood Culture - Final NO GROWTH IN 5 DAYS Complete 05/09/17 17:35 Blood Peripheral Anaerobic Blood Culture - Final NO GROWTH IN 5 DAYS Complete 05/09/17 17:45 Nasal Washing Influenza Types A,B Antigen (VERONIKA) - Final NEGATIVE FOR FLU A AND B ANTIGEN.... Complete 05/09/17 17:40 Urine Catheterized Urine Urine Culture - Final NO GROWTH IN 48 HOURS. Complete Assessment and Plan Diagnosis: (1) Cerebral palsy ICD Codes: G80.9 - Cerebral palsy, unspecified Qualifiers: Cerebral palsy type: unspecified type Qualified Codes: G80.9 - Cerebral palsy, unspecified (2) Spastic quadriplegia ICD Codes: G82.50 - Quadriplegia, unspecified Assessment 1. Patient with increase in spasticity primarily in LE. 2. CT of right hip : . Unremarkable right hip except for mild arthropathy. No evidence of destructive bone changes, joint effusion or periarticular fluid collections. - Severe deformity of the left hip which has the appearance of a Charcot joint - Severe bone demineralization. 3. Continue Baclofen 5 mg per PEG tid 4. Continue Valium 4 mg hs and prn Ativan as this has provided some relief. Would not combine these 2 meds at the same time. Family aware. 5. Continue Zanaflex 4 mg qid 6. Will follow in outpatient clinic. Discussed with patient's family Thank you! Shonda Camargo MD May 14, 2017 15:59
== END 2017-05-14 16:51 | disposition home or self-care (01) | DRG 871 ==
LOC: NEPC 16:41 → NEDA 19:27 → N07A 21:10
PROVIDERS: ADMIT Hospitalist; ATTEND Hospitalist
DX: A41.9 Sepsis, unspecified organism (principal); G80.0 Spastic quadriplegic cerebral palsy; N39.0 Urinary tract infection, site not specified; M41.9 Scoliosis, unspecified; E73.9 Lactose intolerance, unspecified; K59.00 Constipation, unspecified; M81.8 Other osteoporosis without current pathological fracture; M14.6 Charcot's joint; Z93.1 Gastrostomy status
CPT/HCPCS: 71010; 72125; 72128; 72131; 72170; 73700; 74000; 74177; 76775; 80048; 80053; 81001; 83036; 83605; 83690; 83735; 84100; 84439; 84443; 85007; 85025; 85027; 87040; 87086; 87633; 87804; 96361; 96374; J0696; J1650; J1956; J2060; J3480; J7030; P9612; Q9963; Q9967